=== PATIENT | male | born 1960 | race Caucasian/White ===

== ENCOUNTER → 2024-02-27 10:32 | Outpatient (BNVA) | payer MEDICARE, SELFPAY | PROVIDERS: Visit Provider Physician Assistant ==

== ENCOUNTER 2024-03-22 13:44 | Outpatient (AMB) | payer MEDICARE, SELFPAY ==
--- NOTE | 2024-03-22 14:10 | A.SPINEOV_ITS ---
Intake Visit Reasons: second opinion Intake Note: Mr. Charles is here today c/o low back pain. 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 He is a very nice gentleman who underwent a an L5-S1 transforaminal lumbar interbody fusion with Dr. Feldman probably 10-15 years ago he remembers. He had good relief at the time although not perfect he was functional. Last year he fell in the shower and since that time has had persistent low back pain and occasional cramping going down his left leg. He comes in today for evaluation. He did see after this happened and his MRI did not reveal any significant findings and he was sent to pain management in [place]. He underwent a series of injections there but they would maybe last for 1 day or so and did not get any significant relief. He was considered for spinal cord stimulator, but he felt as though the process of it was too much of a hassle and that it probably was not going to work anyway. He came in to see me for a 2nd opinion on his low back. PMH: Recently diagnosed with liver cancer and underwent partial resection, but has not followed up with his oncology team because he was frustrated with his care. Has history of coronary disease, sounds like he had a stent at 1 point but tells me he has not had any issues since. History of previous anterior cervical fusion, shoulder surgery, previous back surgery, cholecystectomy, diabetes, hypertension, BPH. He does not know what his A1c is but he told me that you told him it was good. Social hx: He smokes about a pack of cigarettes per week, smokes marijuana daily but does not use any alcohol Medications: Incruse, Breo, Ozempic, variance I clean, Flomax, tramadol, meloxicam, cetirizine, lisinopril, glipizide, gabapentin, fenofibrate, vitamin-D 12 Allergies: Fentanyl and codeine Physical exam: Awake alert oriented forgetful at times, he has full strength of bilateral lower extremities with absent reflexes at the patella bilaterally. Walks with a cane, describes discomfort around the areas of his incisions on his low back. Imaging review: Lumbar MRI done at [facility] in February of 2024 shows evidence of instrumentation at L5-S1, there is a slight spondylolisthesis at this level. There is an interbody cage which looks like it was inserted on the left side through a transforaminal approach. The rest of his disc height and his alignment of his lumbar spine is excellent. I do not see any evidence of herniated discs or problems with the hardware. Impression: 63-year-old male with previous history of L5-S1 fusion done at [facility] 10-15 years ago presents with chronic low back pain since a fall last spring time in 2022 with intermittent cramping going down his left leg. He saw his surgeon at [facility] who told him that everything looked okay and sent him for pain management. He had intermittent success here but nothing long lasting. I looked at his MRI as well and overall his disc height is excellent and there is no sign of adjacent segment disease or nerve impingement that I can see. There is nothing structurally that I can pinpoint to which would explain the back pain. We agree with Dr. Feldman that there is no further surgery to offer him at this point. I told him he should reconsider the option of a spinal cord stimulator. Thank you for allowing us to care for your patient. The total time spent with this visit with this patient was 45 minutes reviewing history, physical exam, lumbar imaging review, and implementation of treatment plan or further diagnostic testing Alfonzo Otoole MD,PhD [facility] Coding Level of Care Code New Pt Level 4 (64093) Diagnoses Failed back syndrome M96.1
== END 2024-03-22 15:22 | disposition home or self-care (01) ==
PROVIDERS: PCP Physician Assistant; Referring Provider Physician Assistant; Visit Provider Physician Assistant
DX: M96.1 Postlaminectomy syndrome, not elsewhere classified (principal)
CPT/HCPCS: 99204

== ENCOUNTER → 2024-03-22 13:44 | Outpatient (BNVA) | payer MEDICARE, SELFPAY | PROVIDERS: Visit Provider Physician Assistant | DX: M96.1 Postlaminectomy syndrome, not elsewhere classified (principal) | CPT/HCPCS: 99202 ==

== ENCOUNTER 2025-06-10 14:52 | Outpatient (AMB) | payer MEDICARE, MEDICAID, SELFPAY ==
--- OUTSIDE RECORDS SUMMARY | 2025-01-13 07:25 | XMS_ITS ---
Author Organization [facility] Address [address], [place] [id number] Care Team Providers Care Technical Communication Teacher Name Role Phone JASON CANDELARIO Primary Care Provider [phone] REASON FOR VISIT PA for tramadol Encounters Encounter Location Date Provider Diagnosis [facility] [address] [place] [address] 01/13/2025 JASON CANDELARIO PLAN OF TREATMENT Next Appt Details Provider Name:JASON CANDELARIO , 07/27/2025 10:00:00 AM, [address] [place], [address],
--- OUTSIDE RECORDS SUMMARY | 2025-02-02 06:00 | XMS_ITS ---
Author Organization 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 Evaluate and treat. Diagnosis 1 Neuropathy (G62.9) Diagnosis 2 Failed back syndrome , lumbar (M96.1) Referral Organization [facility] Referring Provider First Name JASON Referring Provider Last Name KODAK Referring Provider Speciality Internal M edicine Referred Provider Specialty Physiatry General Notes JASON CANDELARIO 02/02 01:06:52 PM > [facility] [address] Patient needs evaluation for continued chronic back pain and bilateral foot neuropathy related to failed back syndrome. Consider injections., Miryam MERLOS MA 05/05/2025 10:56:51 AM > Referral faxed to (F) [phone] (P) [phone], Layne MICHAELS RN 05/24/2025 11:34:49 AM >Left VM for Crystal at office to confirm receipt of referral and try to book appt. Referral Priority Routine REASON FOR VISIT Follow-up 3 to 4 months for diabetes, blood pressure and medication MEDICATIONS Medication SIG (Take, Route, Frequency, Duration) Notes Start Date End Date Status Ozempic (0.25 or 0.5 MG/DOSE) 2 MG/3ML 0.25 mg Subcutaneous weekly 02/02/2025 Active Cetirizine HCl 10 MG 1 tablet Orally Onc e a day for 30 day(s) Active Levocetirizine Dihydrochloride 5 MG 1 tablet at bedtime orally Once a day Active Azelastine HCl 137 MCG/SPRAY 2 puffs (1 spray in each nostril) Nasally Twice a day 10/27/2024 Active Lisinopril-hydroCHLOROthiazi de 20-12.5 MG 2 tablet Orally Once a day for 90 days Active Varenicline Tartrate 1 MG 3 tablet after eating Orally once a day Active Tamsulosin HCl 0.4 MG 1 capsule Orally O nce a day for 30 day(s) Active traMADol HCl 100 MG 1 tablet as needed orally 4-6 hrs 01/28/2025 Active Albuterol Sulfate (2.5 MG/3ML) 0.083% 3 mL as needed Inhalation every 6 hrs 10/06/2024 Active Gabapentin 400 MG 2 capsules in AM, 2 cap mid day and 1 cap at bedtime./ Orally Active Omeprazole 40 MG 1 capsule 30 minutes before morning meal Orally Once a day for 90 days Active Vitamin B-12 1000 MCG 1 tablet Orally On ce a day for 30 days Active Albuterol Sulfate HFA 108 (90 Base) MCG/ACT 2 puffs Inhalation every 4-6 hours as needed for wheezing 02/03/2024 Active Incruse Ellipta 62.5 MCG/INH 1 puff inha led Once a day Active Nitroglycerin 0.4 MG 1 tablet sublingual q 5 min x 3 doses prn chest pain Active glipiZIDE ER 10 MG 2 tablets Orally Onc e a day for 90 days Active Fenofibrate Micronized 134 MG 1 capsule orally once a day for 30 day(s) Active Fluticasone Propionate 50 MCG/ACT 1 spray in each nostril Nasally Once a day Active Ibuprofen 200 MG 3 tablet with food o r milk as needed Orally Three times a day Active SOCIAL HISTORY Tobacco Use: Social History Observation Description Date Details (start date - stop date) Current Smoker NA - NA Sex Assigned At : Social History Observation Description Sex Assigned At Unknown Smoking Question Answer Notes Are you a: current smoker How often do you smoke Cigarettes? every day How many cigarettes a day do you smoke? 5 or les s Section Notes: pt smokes 2-3 cigarettes a d ay VITAL SIGNS Height 68 in 02/02/2025 Weight 234.6 lbs 02/02/2025 Blood pressure systolic 128 mm Hg 02/03/20 Blood pressure diastolic 88 mm Hg 025 BMI 35.67 kg/m2 02/02/2025 Encounters Encounter Location Date Provider Diagnosis [facility] [address] [place] [address] 02/02/2025 JASON CANDELARIO Type 2 diabetes mellitus with diabetic polyneuropathy, without long-term current use of insulin E11.42 ; Essential hypertension I10 ; Mixed hyperlipidemia E78.2 ; COPD (chronic obstructive pulmonary disease) J44.9 ; Failed back syndrome, lumbar M96.1 ; Neuropathy G62.9 and Seasonal allergic rhinitis due to pollen J30.1 ASSESSMENTS Encounter Date Diagnosis Assessment Notes Treatment Notes Treatment Clinical Notes Section Notes 02/02/2025 Type 2 diabetes mellitus with diabetic polyneuropathy, without long-term current use of insulin (ICD-10 - E11.42) Continue glipizide 10 mg 2 tablets daily. Start Ozempic if approved 0.25 mg weekly for 1 month then will go up to 0.5 mg weekly. Labs ordered. Follow-up in 4 months. Return sooner as needed. Discussed diet, exercise and weight loss. 02/02/2025 Essential hypertension (ICD-10 - I10) Labs ordered. Continue lisinopril/hydroch lorothiazide 20/12.5 mg 2 tablets daily. Discussed diet, exercise and weight loss. Follow-up in 4 months. Blood pressure today is stable. 02/02/2025 Mixed hyperlipidemia (ICD-10 - E78.2) Labs ordered. Continue fenofibrate 134 mg daily. We will continue to monitor and adjust treatment as indicated. Discussed diet, exercise and weight loss. 02/02/2025 COPD (chronic obstructive pulmonary disease) (ICD-10 - J44.9) Currently stable. Continue Incruse Ellipta 62.5 mcg 1 puff daily. Albuterol inhaler or nebulizer for rescue as needed. Currently stable and limited use of rescue medications needed recently. Overall feels well and we will continue to monitor. 02/02/2025 Failed back syndrome, lumbar (ICD-10 - M96.1) Referral placed to physiatry for further evaluation and consideration for possible injections. Continue ibuprofen as needed and tramadol 100 mg as prescribed. Continue gabapentin 400 mg 2 capsules in the morning, 2 capsules midday and 1 capsule at bedtime ice and heat to the back with gentle stretching and range of motion encouraged. We will continue to monitor. 02/02/2025 Neuropathy (ICD-10 - G62.9) See failed back syndrome plan. 02/02/2025 Seasonal allergic rhinitis due to pollen (ICD-10 - J30.1) Continue cetirizine 10 mg in the morning and levocetirizine 5 mg at bedtime. Continue azelastine nasal spray 1 spray each nostril twice a day. Symptomatic care as discussed. Follow-up if continued or worsening symptoms. PLAN OF TREATMENT Medication Medication Name Sig Start Date Stop Date Notes Ozempic (0.25 or 0.5 MG/DOSE ) 2 MG/3ML 0.25 mg Subcutaneous weekly 02/02/2025 Cetirizine HCl 10 MG 1 tablet Orally Onc e a day for 30 day(s) Levocetirizine Dihydrochlori de 5 MG 1 tablet at bedtime orally Once a day Treatment Notes Assessment Notes Type 2 diabetes mellitus wit h diabetic polyneuropathy, without long-term current use of insulin Continue glipizide 10 mg 2 tablets daily . Start Ozempic if approved 0.25 mg weekly for 1 month then will go up to 0.5 mg weekly. Labs ordered. Follow-up in 4 months. Return sooner as needed. Discussed diet, exercise and weight loss. Essential hypertension Labs ordered. Con tinue lisinopril/hydrochlorothiazide 20/12.5 mg 2 tablets daily. Discussed diet, exercise and weight loss. Follow-up in 4 months. Blood pressure today is stable. Mixed hyperlipidemia Labs ordered. Natacha nue fenofibrate 134 mg daily. We will continue to monitor and adjust treatment as indicated. Discussed diet, exercise and weight loss. COPD (chronic obstructive pu lmonary disease) Currently stable. Continue Incruse Ellip ta 62.5 mcg 1 puff daily. Albuterol inhaler or nebulizer for rescue as needed. Currently stable and limited use of rescue medications needed recently. Overall feels well and we will continue to monitor. Failed back syndrome, lumbar Referral pl aced to physiatry for further evaluation and consideration for possible injections. Continue ibuprofen as needed and tramadol 100 mg as prescribed. Continue gabapentin 400 mg 2 capsules in the morning, 2 capsules midday and 1 capsule at bedtime ice and heat to the back with gentle stretching and range of motion encouraged. We will continue to monitor. Neuropathy See failed back synd luz maria plan. Seasonal allergic rhinitis due to pollen Continue cetirizine 10 mg in the morning and levocetirizine 5 mg at bedtime. Continue azelastine nasal spray 1 spray each nostril twice a day. Symptomatic care as discussed. Follow-up if continued or worsening symptoms. 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 Evaluate and treat. Next Appt Details Follow Up: Follow-up in 3 to 4 months for recheck on diabetes, blood pressure and medication in 40 minutes slot. Referral to physiatry placed. Continue current medications as prescribed. Start Ozempic if approved at 0.25 mg weekly then can go up to 0.5 mg weekly in 1 month., Reason: Provider Name:JASON CANDELARIO , 07/27/2025 10:00:00 AM, [address] [place] [address], [id number], Progress Notes * Examination Category Sub-Category Detail Notes Category Not es General Examination HEENT: NC/AT, EOMI,PERRL Neck: supple, no lymphaden opathy, no thyromegaly, no carotid bruit, JVP flat Heart: RRR, no murmurs, cli cks or rubs, normal S1S2 Lungs: clear to auscultatio n Abdomen: soft, non tender/non distended Extremities: normal ROM, no clubb ing , cyanosis, or edema, both feet with chronic neuropathic pain and some decreased sensation bilaterally. This is currently stable. General Appearance no apparent distress , pleasant, obese Skin: normal, no rash Neuro alert and oriented x 3, CN 2-12 intact, motor 5/5 bilaterally proximally and distally in all 4 extremities History and Physical Notes * HPI (History of Present Illness) Category Sub-Category Detail Notes Category Not es General Patient here fo r follow-up on diabetes, blood pressure, hyperlipidemia, COPD, seasonal allergies, failed back syndrome and neuropathy. Patient states he has new insurance and would like to try to get back on the GLP-1 and would like to try Ozempic. Prescription will be sent. In the meantime he continues on glipizide ER 10 mg 2 tablets once a day. Last hemoglobin A1c 1 month ago was 8.1. He is on fenofibrate 134 mg daily for his triglycerides and cholesterol. Tolerating well. He continues on omeprazole 40 mg daily for GERD. He has Incruse Ellipta 1 puff daily for COPD and notes that he rarely has to use his albuterol rescue but of the last few days with the heat and humidity has had to use the albuterol little bit more. Continues on lisinopril/hydrochlorothiazide 20/12.5 mg 2 tablets daily for his blood pressure and blood pressure today is under good control. For BPH he is on tamsulosin 0.4 and milligrams daily and tolerating. For his seasonal allergies he is on cetirizine in the morning and levocetirizine at bedtime. He also has azelastine nasal sprays twice a day. Does continue on Chantix. He has tramadol 100 mg 1 tablet every 4-6 hours as needed for his chronic pain related to his failed back surgery and chronic neuropathy. He will use ibuprofen as well at times. Currently stable. Will put in referral to physiatry. May need further evaluation. Consultation Request Notes Referral Date Referring Provider Referred Provider Not kanchan 02/02/2025 JASON CANDELARIO , (FAXED ) Chronic back pain and bilateral foot neuropathy. Evaluate and treat.
--- OUTSIDE RECORDS SUMMARY | 2025-03-24 06:34 | XMS_ITS ---
Author Organization [facility] Address [address], [place] [id number] Care Team Providers Care Whale Trainer Name Role Phone JASON CANDELARIO Primary Care Provider REASON FOR VISIT issue with insurance Encounters Encounter Location Date Provider Diagnosis [facility] [address] [place] [address] 03/24/2025 JASON CANDELARIO PLAN OF TREATMENT Next Appt Details Provider Name:AJSON CANDELARIO , 07/27/2025 10:00:00 AM, [address] [place], [address],
--- OUTSIDE RECORDS SUMMARY | 2025-05-05 05:20 | XMS_ITS ---
Author Organization [facility] Address [address] [place], [place] [id number] Care Team Providers Care Cook Camp Name Role Phone JASON CANDELARIO Primary Care [...] e REASON FOR REFERRAL Reason (FAXED 05/05/25) Requ esting second opinion on failed back syndrome in his lumbar region and other potential options Diagnosis 1 Failed back syndrome , lumbar (M96.1) Referral Organization [facility] Referring Provider First Name JASON Referring Provider Last Name KODAK Referring Provider Speciality Internal M edicine Referred Provider HILARY GUTIERREZ Referred Provider Specialty Neurological Surgery General Notes JASON CANDELARIO 05/05 10:25:43 AM > please send referral to Dr. 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 Previous surgery by Dr. Feldman adenoids with orthopedics and does not want to see any providers there any longer. Would like second opinion on other possible treatments including possibility of endoscopic surgery., Miryam MERLOS [place] 05/05/2025 03:25:58 PM > Referral faxed (P) (f) [phone] Referral Priority Routine REASON FOR VISIT Follow-up in 3 to 4 months for recheck on diabetes, blood pressure and medicationin 40 minutes slot, pt would like flu vaccine MEDICATIONS Medication SIG (Take, Route, Frequency, Duration) Notes Start Date End Date Status traMADol HCl 100 MG 1 tablet as needed orally 4-6 hours 04/20/2025 Active Omeprazole 40 MG 1 capsule 30 minutes before morning meal Orally Once a day for 90 days Active Fluticasone Propionate 50 MCG/ACT 1 spray in each nostril Nasally Twice a day Active Levocetirizine Dihydrochloride 5 MG 1 tablet at bedtime orally Once a day Active Cetirizine HCl 10 MG 1 tablet Orally Onc e a day for 30 day(s) Active Tamsulosin HCl 0.4 MG 1 capsule Orally O nce a day for 30 day(s) Active Varenicline Tartrate 1 MG 3 tablet after eating Orally once a day Active Lisinopril-hydroCHLOROthiazi de 20-12.5 MG 2 tablet Orally Once a day for 90 days Active Azelastine HCl 137 MCG/SPRAY 2 puffs (1 spray in each nostril) Nasally Twice a day 10/27/2024 Active Gabapentin 400 MG 3 capsules in AM, 3 cap mid day and 3 caps at bedtime./ Orally three times a day Active glipiZIDE ER 10 MG 2 tablets Orally Onc e a day for 90 days Active Albuterol Sulfate (2.5 MG/3ML) 0.083% 3 mL as needed Inhalation every 6 hrs 10/06/2024 Active Albuterol Sulfate HFA 108 (90 Base) MCG/ACT 2 puffs Inhalation every 4-6 hours as needed for wheezing 02/03/2024 Active Vitamin B-12 1000 MCG 1 tablet Orally On ce a day for 30 days Active Fenofibrate Micronized 134 MG 1 capsule orally once a day for 30 day(s) Active Nitroglycerin 0.4 MG 1 tablet sublingual q 5 min x 3 doses prn chest pain Active Incruse Ellipta 62.5 MCG/INH 1 puff inha led Once a day Active Ibuprofen 200 MG 3 tablet with food o r milk as needed Orally Three times a day Active Ozempic (0.25 or 0.5 MG/DOSE) 2 MG/3ML 0.5 mg Subcutaneous weekly 02/02/2025 Active SOCIAL HISTORY Tobacco Use: Social History [...] d ay VITAL SIGNS Height 68 in 05/05/2025 Weight 238.4 lbs 05/05/2025 Blood pressure systolic 132 mm Hg 05/05/20 Blood pressure diastolic 88 mm Hg 025 BMI 36.24 kg/m2 05/05/2025 Encounters Encounter Location Date Provider Diagnosis [facility] [address] [place] [address] 05/05/2025 JASON CANDELARIO Type 2 diabetes mellitus with diabetic polyneuropathy, without long-term current use of insulin E11.42 ; Essential hypertension I10 ; Mixed hyperlipidemia E78.2 ; COPD (chronic obstructive pulmonary disease) J44.9 and Failed back syndrome, lumbar M96.1 ASSESSMENTS Encounter Date Diagnosis Assessment Notes Treatment Notes Treatment Clinical Notes Section Notes 05/05/2025 Type 2 diabetes mellitus with diabetic polyneuropathy, without long-term current use of insulin (ICD-10 - E11.42) Get lab work done as ordered. Increase Ozempic to 0.5 mg weekly. Continue glipizide 10 mg 2 tablets daily. Follow-up in 3 months. Discussed diet and weight loss. 05/05/2025 Essential hypertension (ICD-10 - I10) Get labs done as ordered. Blood pressure initially elevated but improved on recheck. Continue lisinopril/hydroc hlorothiazide 20/12.5 mg 2 tablets daily. Discussed diet and weight loss. Watch salt intake. Avoid fried and fatty foods. Will recheck in 3 months. 05/05/2025 Mixed hyperlipidemia (ICD-10 - E78.2) Get labs done as ordered. Continue fenofibrate 134 mg daily. Discussed diet and weight loss. We will continue to monitor. 05/05/2025 COPD (chronic obstructive pulmonary disease) (ICD-10 - J44.9) Currently stable. Continue Incruse Ellipta 62.5 mcg 1 puff daily and albuterol inhaler and albuterol nebulizer as needed for exacerbations. No recent exacerbations and doing well. We will continue to monitor. 05/05/2025 Failed back syndrome, lumbar (ICD-10 - M96.1) Increase gabapentin 400 mg to 3 tablets in the morning, 3 tablets midday, and 3 tablets at bedtime. Referral to Dr. Gutierrez for second opinion on possible treatments. Ice and heat as discussed. Tramadol if needed. PLAN OF TREATMENT Medication Medication Name Sig Start Date Stop Date Notes Ozempic (0.25 or 0.5 MG/DOSE ) 2 MG/3ML 0.5 mg Subcutaneous weekly 02/02/2025 Treatment Notes Assessment Notes Type 2 diabetes mellitus wit h diabetic polyneuropathy, without long-term current use of insulin Get lab work done as ordered. Increase Ozempic to 0.5 mg weekly. Continue glipizide 10 mg 2 tablets daily. Follow-up in 3 months. Discussed diet and weight loss. Essential hypertension Get labs done as ordered. Blood pressure initially elevated but improved on recheck. Continue lisinopril/hydrochlorothiazide 20/12.5 mg 2 tablets daily. Discussed diet and weight loss. Watch salt intake. Avoid fried and fatty foods. Will recheck in 3 months. Mixed hyperlipidemia Get labs done as or dered. Continue fenofibrate 134 mg daily. Discussed diet and weight loss. We will continue to monitor. COPD (chronic obstructive pu lmonary disease) Currently stable. Continue Incruse Ellip ta 62.5 mcg 1 puff daily and albuterol inhaler and albuterol nebulizer as needed for exacerbations. No recent exacerbations and doing well. We will continue to monitor. Failed back syndrome, lumbar Increase ga bapentin 400 mg to 3 tablets in the morning, 3 tablets midday, and 3 tablets at bedtime. Referral to Dr. Gutierrez for second opinion on possible treatments. Ice and heat as discussed. Tramadol if needed. Referrals Referral Date Details (FAXED 05/05/25) Requ esting second opinion on failed back syndrome in his lumbar region and other potential options , HILARY GUTIERREZ Next Appt Details Follow Up: Needs Prevnar 20 and flu shot today. Labs ordered. Follow-up in 3 months for diabetes, blood pressure, cholesterol and medication in 40 minutes slot. Referral to Dr. Gutierrez for second opinion on failed back syndrome. Return sooner as needed., Reason: Provider Name:JASON CANDELARIO , 07/27/2025 10:00:00 AM, [address] [place], [address], Progress Notes * Examination Category Sub-Category Detail Notes Category Not es General Examination HEENT: NC/AT, EOMI,PERRL, no nicteric Neck: supple, no lymphaden opathy, no carotid bruit, JVP flat Heart: RRR, no murmurs, cli cks or rubs, normal S1S2 Lungs: clear to auscultatio n Abdomen: Soft with positive b owel sounds. Some discomfort with palpation in the right and left upper quadrants but no rebound or guarding. Mild bloating noted. Extremities: normal ROM, no clubb ing , cyanosis, or edema General Appearance alert, pleasant, unc omfortable due to pain Skin: normal, no rash Neuro alert and oriented x 3, CN 2-12 intact, motor 5/5 bilaterally proximally and distally in all 4 extremities, ambulates with aid of cane with slow antalgic gait. Back: Decreased range of m otion of spine. Tenderness with palpation in the lower lumbar spine and SI joints. No deformities noted. History and Physical Notes * HPI (History of Present Illness) Category Sub-Category Detail Notes Category Not es General Patient here fo r 3-month follow-up on diabetes, blood pressure, cholesterol, COPD, failed back syndrome/chronic pain and medication. Last hemoglobin A1c October 27, 2024 was 8.1. Did not get lab work done that was ordered in January. Will get lab work today. He was recently approved for Ozempic and has taken 3 doses of the 0.25 mg weekly dose. Will go up to 0.5 after last 0.25 dose. Continues on glipizide ER 10 mg 2 tablets daily. Not checking sugars at home. Blood pressure was mildly elevated but improved on recheck. Continues on lisinopril/hydrochlorothiazide 20/12.5 mg 2 tablets daily. He notes that he has been under a lot of stress over the last month with his brother in the hospital for the last month due to complications from rare lymphoma. Patient has not been sleeping much and not eating as well. His back pain continues and he would like a referral for a second opinion for possible endoscopic spine surgery evaluation. Had seen Dr. Feldman in the past but does not want to see [facility] any longer. Currently on gabapentin 400 mg 3 capsules in the morning, 2 capsules midday and 3 capsules at bedtime. Has been helpful but still having discomfort we will go up to 3 capsules at each dose and he will be at max dose. He does use tramadol as needed for pain. He is using the Incruse Ellipta daily and albuterol inhaler and nebulizer as needed. Continues on omeprazole 40 mg daily. Denies any issues with chest pain or current shortness of breath. He does have a history of hepatocellular carcinoma but has declined any treatment or follow-up with oncology or GI for this. He continues to refuse care. He does understand the risks of not treating and eventual morbidity and mortality and continues to deny referral for treatment. Consultation Request Notes Referral Date Referring Provider Referred Provider Not es 05/05/2025 JASON CANDELARIO FREDERIK (FAXED 05/05/25) Requesting second opinion on failed back syndrome in his lumbar region and other potential options
--- OUTSIDE RECORDS SUMMARY | 2025-05-05 06:15 | XMS_ITS ---
Author Organization [facility] Address [address], [place] [id number] Care Team Providers Care Poker Machine Attendant Name Role Phone JASON CANDELARIO Primary Care Provider [facility] [place], NURSING Unavailable [phone] REASON FOR VISIT flu shot IMMUNIZATIONS Vaccine Route Administration Date Status Comme nts Influenza, Fluzone HD 65+ IM Intramuscular 05/05/2025 Admi nistered Encounters Encounter Location Date Provider Diagnosis [address] [address] 05/05/2025 NURSING [facility] PLAN OF TREATMENT Next Appt Details Provider Name:JASON CANDELARIO , 07/27/2025 10:00:00 AM, [address] [place] [address], [phone],
--- OUTSIDE RECORDS SUMMARY | 2025-05-06 04:00 | XMS_ITS ---
Author Organization [facility] Address [address], [place] [id number] Care Team Providers Care Guide Cruise Name Role Phone JASON CANDELARIO Primary Care Provider [phone] REASON FOR VISIT Lab results MEDICATIONS Medication SIG (Take, Route, Frequency, Duration) Notes Start Date End Date Status Fenofibrate Micronized 134 MG 1 capsule orally once a day Active Encounters Encounter Location Date Provider Diagnosis [address] [address] 05/06/2025 JASON CANDELARIO PLAN OF TREATMENT Medication Medication Name Sig Start Date Stop Date Notes Fenofibrate Micronized 134 MG 1 capsule orally once a day Next Appt Details Provider Name:JASON CANDELARIO , 07/27/2025 10:00:00 AM, [address] [place], [address],
--- OUTSIDE RECORDS SUMMARY | 2025-05-12 05:19 | XMS_ITS ---
Author Organization [facility] Address [address], [place] [id number] Care Team Providers Care Truck Loader And Unloader Name Role Phone JASON CANDELARIO Primary Care Provider [phone] REASON FOR VISIT PA for Tramadol Encounters Encounter Location Date Provider Diagnosis [facility] [address] [place] [address] 2025 JASON CANDELARIO PLAN OF TREATMENT Next Appt Details Provider Name:JASON CANDELARIO , 07/27/2025 10:00:00 AM, [address] [place], [address],
--- OUTSIDE RECORDS SUMMARY | 2025-05-24 07:15 | XMS_ITS ---
Author Organization [facility] Address [address] [place], [place] [id number] Care Team Providers Care Chummer Name Role Phone JASON CANDELARIO Primary Care Provider REASON FOR VISIT CM/Referral F/U Encounters Encounter Location Date Provider Diagnosis [facility] [address] [place] [phone] 05/24/2025 JASON CANDELARIO PLAN OF TREATMENT Next Appt Details Provider Name:JASON CANDELARIO , 07/27/2025 10:00:00 AM, [address] [place], [address],
--- OUTSIDE RECORDS SUMMARY | 2025-05-24 08:33 | XMS_ITS ---
Author Organization [facility] Address [address], [place] [id number] Care Team Providers Care Bank Credit Card Collection Clerk Name Role Phone JASON CANDELARIO Primary Care Provider RESULTS Component Value Reference Range Notes MRI Lumbar Spine without con trast Reviewed date:06/07/2025 05:53:15 PM Interpretation: Performing Lab: Notes/Report: REASON FOR VISIT (2)CM/Referral F/U/ MRI PROBLEMS Problem Type ICD Code Onset Dates Problem Status W/U Status Risk SNOMED Code Notes Problem Degeneration of intervertebral disc of lumbar region with discogenic back pain and lower extremity pain (M51.362) Active confirmed [id number] Encounters Encounter Location Date Provider Diagnosis [facility] [address] [place] [phone] 05/24/2025 JASON CANDELARIO Failed back syndrome , lumbar M96.1 ; Degeneration of intervertebral disc of lumbar region with discogenic back pain and lower extremity pain M51.362 ; Lumbago with sciatica, right side M54.41 and Lumbago with sciatica, left side M54.42 ASSESSMENTS Encounter Date Diagnosis Assessment Notes Treatment Notes Treatment Clinical Notes Section Notes 05/24/2025 Failed back syndrome, lumbar (ICD-10 - M96.1) 05/24/2025 Degeneration of intervertebral disc of lumbar region with discogenic back pain and lower extremity pain (ICD-10 - M51.362) 05/24/2025 Lumbago with sciatica, right side (ICD-10 - M54.41) 05/24/2025 Lumbago with sciatica, left side (ICD-10 - M54.42) PLAN OF TREATMENT Next Appt Details Provider Name:JASON CANDELARIO , 07/27/2025 10:00:00 AM, [address] [place] [address], [phone],
--- OUTSIDE RECORDS SUMMARY | 2025-06-07 10:30 | XMS_ITS | Encounter Summary ---
Author Organization [facility] Address [address] [place] [address] Care Team Providers Care Primer Assembler Name Role Phone Juana Anderson MD Primary Care Provider [phone] Reason for Visit * Therapy (Routine) - Authorized Specialty Diagnoses / Procedures Referred By Contac t Referred To Contact Pulmonology Diagnoses Centrilobular emphysema (CMS/HCC V24, [facility] V28) Procedures Pulmonary function testing: Carbon Monoxide Diffusing Capacity, Helium Dilution Lung Volumes, Flow Volume Loop, Spirometry with Bronchodilator, Vital Capacity Test, Spirometry Adrienne Fontenot MD [address] [place] [address] Phone: tel: fax: Pulmonology - [address] [address] Phone: tel: fax: Referral ID Status Reason Start Date Expiration Date V isits Requested Visits Authorized [id number] Authorized 02/23/2025 02/23/2026 1 1 Encounter Details Date Type Department Care Team (Latest Contact Info) Description 06/07/2025 10:30 AM EDT Ancillary Procedure Pulmonology - [address] [address] Centrilobular emphysema (CMS/HCC V24, [facility] V28) Social History Tobacco Use Types Packs/Day Years Used Date Smoking Tobacco: Some Days Cigarettes Smokeless Tobacco: Never Alcohol Use Standard Drinks/Week Comments No 0 (1 standard drink = 0.6 oz pur e alcohol) Sex and Gender Information Value Date Recorded Sex Assigned at Not on file Legal Sex Male 10:20 AM EST Gender Identity Not on file Sexual Orientation Not on file documented as of this encounter Progress Notes * Mike May - 06/07/2025 10:30 AM EDT PFT performed Patient reports self administration of bronchodilators 60 mins prior to arrival. Ordering provider aware; approved to continue with diagnostic testing as scheduled. documented in this encounter Plan of Treatment Upcoming Encounters Date Type Department Care Team (Late st Contact Info) Description 09/07/2025 11:00 AM EST Office Visit Pulmonology - [place] [address] [place] [address] Adrienne Fontenot MD [address] [place] [phone] documented as of this encounter Procedures Procedure Name Priority Date/Time Associated Diagnosis Comments PULMONARY FUNCTION TESTING Routine 06/07/2025 10:52 AM EDT Centrilobular emphysema (CMS/HCC V24, CMS/HCC V28) documented in this encounter Results * Pulmonary function testing: Carbon Monoxide Diffusing Capacity, Helium Dilution Lung Volumes, Flow Volume Loop, Spirometry with Bronchodilator, Vital Capacity Test, Spirometry (06/07/2025 10:52 AM EDT) Impressions Adrienne Fontenot MD - 06/07/2025 10:52 AM EDT Pulmonary function test interpretation. Spirometry done today reveals FEV1 of 1.82 which is 56% of the predicted value, FVC is 2.67 which is 61% of the predicted value, FEV1 to FVC ratio is 92% of the predicted value, bronchodilator response was not assessed. Flow-volume is consistent with obstructive pattern. Static lung volumes including total lung capacity is mildly reduced. Diffusion lung capacity is severely reduced and remains severely reduced after correction for alveolar volume. This study is consistent with moderate obstructive lung disease along with concomitant mild restrictive lung disease for which clinical correlation is recommended. us Adrienne Fontenot MD PFT ORDERABLES Final Result documented in this encounter Visit Diagnoses Diagnosis Centrilobular emphysema (CMS/[facility] V24, CMS/[facility] V28) documented in this encounter Care Teams Primer Assembler Relationship Specialty Start Date End Date Juana Anderson MD [address] [place], [place] PCP - General 03/15/16 documented as of this encounter
--- OUTSIDE RECORDS SUMMARY | 2025-06-07 11:15 | XMS_ITS | Encounter Summary ---
Author Organization [facility] Address [address] [place] [address] Care Team Providers Care Hims Clerk Name Role Phone Juana Anderson MD Primary Care Provider Reason for Visit * Reason Comments Sleep Apnea Encounter Details Date Type Department Care Team (Late st Contact Info) Description 06/07/2025 11:15 AM EDT Office Visit Pulmonology - [address] [place] [address] Adrienne Fontenot MD [address] [place] [phone] Morbid obesity due to excess calories ([facility] V24, [facility] V28) (Primary Dx); Emphysema of lung ([facility] V24, [facility] V28); Seasonal allergic rhinitis due to pollen; Chronic obstructive pulmonary disease, unspecified COPD type ([facility] V24, [facility] V28) Social History Tobacco Use [...] on file documented as of this encounter Last Filed Vital Signs Vital Sign Reading Time Taken Comments Blood Pressure 136/96 06/07/2025 11:08 AM EDT Pulse 91 06/07/2025 11:08 AM EDT Temperature 35.8 C (96.5 F) 06/07/2025 11:08 AM EDT Respiratory Rate - - Oxygen Saturation 99% 06/07/2025 11:08 AM EDT Inhaled Oxygen Concentration - - Weight 104 kg (230 lb) 06/07/2025 11:08 AM EDT Height - - Body Mass Index 33.97 02/23/2025 9:01 AM EDT documented in this encounter Ordered Prescriptions Prescription Sig Dispense Quantity Refills Last Filled Start Date End Date albuterol HFA (Ventolin HFA) 90 mcg/actuation inhaler Inhale 2 puffs by mouth every 6 (six) hours if needed for wheezing or shortness of breath. 18 g 11 06/07/2025 Incruse Ellipta 62.5 mcg/actuation inhalationIndicati ons:Chronic obstructive pulmonary disease, unspecified COPD type ([facility] V24, [facility] V28) Inhale 1 puff by mouth 1 (one) time each day. 9 each 11 06/07/2025 documented in this encounter Progress Notes * Cleo Parson MA - 06/07/2025 11:15 AM EDT Subjective Patient ID: Garry Charles is a 65 y.o. male. HPI Review of Systems Objective Physical Exam Assessment/Plan There are no diagnoses linked to this encounter. * Adrienne Fontenot MD - 06/07/2025 11:15 AM EDT ADULT PULMONARY Followup CHIEF COMPLAINT : Sleep Apnea HISTORY OF PRESENT ILLNESS: History of Present Illness Garry Charles is a 65 y.o. old, patient is here for follow-up visit, since his last visit to my office overall appears to be doing okay, has not been able to lose any weight, patient overall on Ozempic and gained 22 pounds, Ozempic was not covered by insurance however patient informed me that Ozempic is not covered and he has started taking Ozempic about a week ago, breathing has been stable, denies any fever or chills, chest pains, cough or colored phlegm production, no hospitalization or emergency room visits since his last visit to the office. REVIEW OF SYSTEMS: Review of Systems Cardiovascular: Positive for dyspnea on exertion. Respiratory: Positive for cough. All other systems reviewed and are negative. ALLERGIES: Current Allergies[1] ACTIVE MEDICATIONS: Medications Taking[2] PROVIDER ATTESTS THAT THE MEDICATION LIST WAS OBTAINED, REVIEWED AND UPDATED. PAST MEDICAL HISTORY: There are no active problems to display for this patient. Surgical History[3] Surgical History[4] FAMILY HISTORY: Family History[5] SOCIAL HISTORY Social History Socioeconomic History Marital status: Spouse name: Not on file Number of children: Not on file Years of education: Not on file Highest education level: Not on file Occupational History Not on file Tobacco Use Smoking status: Some Days Current packs/day: 1.50 Types: Cigarettes Smokeless tobacco: Never Substance and Sexual Activity Alcohol use: No Drug use: Yes Sexual activity: Not on file Other Topics Concern Not on file Social History Narrative Not on file IMMUNIZATION: Immunization History Administered Date(s) Administered COVID-19 (Pfizer/Comirnaty) 12yo and older 05/21/2023, 2024, 05/09/2025 Pfizer (ages 12 & older) Bivalent, COVID-19 05/31/2022 Pfizer (ages 12 & older) SARS-CoV-2 COVID-19, mRNA, LNP-S, karlee-sucrose, preservative free 12/03/2021 Pfizer SARS-CoV-2 COVID-19, mRNA, LNP-S, preservative free 10/21/2020, 11/11/2020, 05/14/2021 PHYSICAL EXAM: Visit Vitals BP (!) 136/96 (BP Location: Left arm, Patient Position: Sitting, BP Cuff Size: Adult) Pulse 91 Temp 35.8 ??C (96.5 ??F) (Temporal) Wt 104 kg (230 lb) SpO2 99% BMI 33.97 kg/m?? Smoking Status Some Days BSA 2.19 m?? Physical Exam Vitals and nursing note reviewed. Constitutional: Appearance: Normal appearance. HENT: Head: Normocephalic and atraumatic. Right Ear: Tympanic membrane, ear canal and external ear normal. Left Ear: Tympanic membrane, ear canal and external ear normal. Nose: Nose normal. Mouth/Throat: Mouth: Mucous membranes are moist. Pharynx: Oropharynx is clear. Eyes: Extraocular Movements: Extraocular movements intact. Conjunctiva/sclera: Conjunctivae normal. Pupils: Pupils are equal, round, and reactive to light. Cardiovascular: Rate and Rhythm: Normal rate and regular rhythm. Pulses: Normal pulses. Heart sounds: Normal heart sounds. Pulmonary: Effort: Pulmonary effort is normal. Breath sounds: Normal breath sounds. Abdominal: General: Bowel sounds are normal. Palpations: Abdomen is soft. Comments: Obese. Musculoskeletal: General: Normal range of motion. Cervical back: Normal range of motion and neck supple. Skin: General: Skin is warm. Capillary Refill: Capillary refill takes more than 3 seconds. Neurological: General: No focal deficit present. Mental Status: He is alert and oriented to person, place, and time. Mental status is at baseline. Psychiatric: Mood and Affect: Mood normal. Behavior: Behavior normal. Thought Content: Thought content normal. Judgment: Judgment normal. Diagnostic: CURRENTS ICD-10 PULMONARY DIAGNOSIS 1. Morbid obesity due to excess calories (CMS/HCC V24, CMS/HCC V28) 2. Emphysema of lung (CMS/HCC V24, CMS/HCC V28) 3. Seasonal allergic rhinitis due to pollen 4. Chronic obstructive pulmonary disease, unspecified COPD type (CMS/HCC V24, CMS/HCC V28) 5. Obstructive sleep apnea. 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 1. Obstructive sleep apnea, moderate degree, patient informed me that he has been using the CPAP machine every night, denies any residual daytime tiredness and somnolence. He has been advised to continue with the CPAP machine every night. 2. Emphysema, moderate degree, breathing has been stable, continue to have baseline dyspnea on exertion, continue with Breo Ellipta 100/25 mcg 1 puff once a day, Incruse Ellipta 62.5 mcg 1 puff once a day, albuterol HFA 2 puffs every 6 hours as needed for shortness of breath. 3. Allergic rhinitis, continue with Zyrtec 10 mg p.o. nightly as needed along with fluticasone nasal spray 2 spray in each nostril twice a day on as-needed basis, allergic rhinitis has been stable with the current treatment plan. 4. Morbid obesity, as mentioned before gained 22 point on Ozempic, which subsequently was not covered by the insurance but now informed me that he is back on Ozempic for the last 1 week, weight loss has been advised, counseling has been given, patient has been advised to join a weight loss program as well, dietary discretion and portion control has been advised. 5. Medications were reconciled with patient today. 6. Disposition, follow-up in 3 months. Problem List Items Addressed This Visit None Visit Diagnoses Morbid obesity due to excess calories ([facility] V24, [facility] V28) - Primary Emphysema of lung ([facility] V24, [facility] V28) Relevant Medications Incruse Ellipta 62.5 mcg/actuation inhalation albuterol HFA (Ventolin HFA) 90 mcg/actuation inhaler Seasonal allergic rhinitis due to pollen Chronic obstructive pulmonary disease, unspecified COPD type ([facility] V24, [facility] V28) Relevant Medications Incruse Ellipta 62.5 mcg/actuation inhalation albuterol HFA (Ventolin HFA) 90 mcg/actuation inhaler -Follow up with Juana Anderson MD for the other co-morbilities. RETURN TO THE NEXT VISIT: Based on physical exam, symptomatology, tests requested and baseline pulmonary evaluation/disease, I instructed the patient to come back to see me in for reevaluation after the test has been done or earlier if the patient needed. Thanks Juana Anderson MD for allowing me to have the opportunity to assist in the care of this patient. This chart was generated by the [employer]MR system and [employer] speech recognition software and may contain inherent errors or omissions not intended by the user. Grammatical errors, random word insertions, deletions, pronoun errors and incomplete sentences are occasional consequences of this technologydue to software limitations. Not all errors are caught or corrected. If there are questions or concerns about the content of this note or information contained within the body of this dictation they should be addressed directly with the author for clarification. Electronically Signed By:Adrienne Fontenot MD I have obtained verbal consent from Garry Charles prior to the recording. I have advised Garry Charles that he may refuse the recording and require the recording to be turned off at any time duringthis encounter. [1] Allergies Allergen Reactions Fentanyl Itching and Unknown Morphine Other Reaction(s): PILLS N&V Tramadol Vomiting Codeine Hives, Unknown and Rash [2] Outpatient Medications Marked as Taking for the 06/07/25 encounter (Office Visit) with Adrienne Fontenot MD Medication Sig Dispense Refill albuterol 2.5 mg /3 mL (0.083 %) nebulizer solution Take 3 mL (2.5 mg total) by nebulization every 6 (six) hours if needed for wheezing or shortness of breath. albuterol HFA (PROAIR HFA ; PROVENTIL HFA ; VENTOLIN HFA) 90 mcg/actuation inhaler Inhale 2 puffs by mouth every 4 (four) hours if needed for shortness of breath or wheezing. amoxicillin-clavulanate (AUGMENTIN) 875-125 mg per tablet Take 1 tablet by mouth every 12 (twelve) hours. for 7 days azelastine (ASTELIN) 137 mcg (0.1 %) nasal spray Administer 1 spray into each nostril 2 (two) timesa day. azithromycin (ZITHROMAX) 250 mg tablet TAKE 2 TABLETS BY MOUTH FOR 1 DAY THEN TAKE 1 TABLET BY MOUTH FOR 4 DAYS Breo Ellipta 100-25 mcg/dose inhaler Inhale 1 puff by mouth 1 (one) time each day. 60 each 11 budesonide-formoteroL (SYMBICORT) 160-4.5 mcg/actuation inhaler Inhale 2 puffs by mouth 2 (two) times a day. cetirizine (ZyrTEC) 10 mg tablet Take 1 tablet (10 mg total) by mouth 1 (one) time each day. 90 tablet 3 cyanocobalamin (VITAMIN B-12) 1,000 mcg tablet Take 1 tablet (1,000 mcg total) by mouth 1 (one) time each day. fenofibrate micronized (LOFIBRA) 134 mg capsule Take 1 capsule (134 mg total) by mouth 1 (one) timeeach day. fluticasone propionate (FLONASE) 50 mcg/actuation nasal spray Administer 1 spray into each nostril 2 (two) times a day. SHAKE LIQUID gabapentin (NEURONTIN) 400 mg capsule TAKE 3 CAPSULES BY MOUTH EVERY MORNING AND TAKE 2 CAPSULES BYMOUTH MIDDAY AND 3 CAPSULES BY MOUTH EVERY NIGHT AT BEDTIME glipiZIDE (GLUCOTROL XL) 10 mg 24 hr tablet Take 2 tablets (20 mg total) by mouth 1 (one) time eachday. Incruse Ellipta 62.5 mcg/actuation inhalation Inhale 1 puff by mouth 1 (one) time each day. 9 each 11 ipratropium (ATROVENT) 42 mcg (0.06 %) nasal spray Administer 2 sprays into each nostril 3 (three) times a day. levocetirizine (XYZAL) 5 mg tablet Take 1 tablet (5 mg total) by mouth. lisinopril-hydroCHLOROthiazide (PRINZIDE,ZESTORETIC) 20-12.5 mg per tablet Take 2 tablets by mouth 1 (one) time each day. omeprazole (PriLOSEC) [address] capsule take 1 capsule by mouth daily 30 minutes before breakfast ondansetron ODT (ZOFRAN-ODT) 4 mg disintegrating tablet Dissolve 1 tablet (4 mg total) on top of the tongue every 8 (eight) hours if needed. predniSONE (DELTASONE) 20 mg tablet TAKE 3 TABLETS BY MOUTH AT THE SAME TIME IN THE MORNING FOR 3 DAYS THEN TAKE 2 TABLETS BY MOUTH FOR 3 DAYS THEN TAKE 1 TABLET BY MOUTH FOR 3 DAYS tamsulosin (FLOMAX) 0.4 mg 24 hr capsule Take 1 capsule (0.4 mg total) by mouth 1 (one) time each day. traMADoL 100 mg tablet TAKE 1 TABLET BY MOUTH EVERY 4 TO 6 HOURS FOR 5 DAYS NEEDED [DISCONTINUED] Incruse Ellipta 62.5 mcg/actuation inhalation Inhale 1 puff by mouth 1 (one) time each day. 9 each 11 [3] Past Surgical History: Procedure Laterality Date ANGIOPLASTY PROCEDURE: HISTORICAL ANGIOPLASTY CHOLECYSTECTOMY PROCEDURE: HISTORICAL CHOLECYSTECTOMY NECK SURGERY PROCEDURE: HISTORICAL NECK SURGERY OTHER SURGICAL HISTORY 2011 PROCEDURE: LUMBAR SPINE FUSION, LAT TRANSVERSE [4] Past Surgical History: Procedure Laterality Date ANGIOPLASTY PROCEDURE: HISTORICAL ANGIOPLASTY CHOLECYSTECTOMY PROCEDURE: HISTORICAL CHOLECYSTECTOMY NECK SURGERY PROCEDURE: HISTORICAL NECK SURGERY OTHER SURGICAL HISTORY 2011 PROCEDURE: LUMBAR SPINE FUSION, LAT TRANSVERSE [5] Family History Problem Relation Name Age of Onset Coronary artery disease Mother Other (Other: unknown heart problems) Mother Liver disease Father hepatitis c, drug user Heart attack Uncle Other (Other: cancer other ) Uncle documented in this encounter Plan of Treatment Upcoming Encounters Date Type Department Care Team (Late st Contact Info) Description 09/07/2025 11:00 AM EST Office Visit Pulmonology - [place] [address] [facility] [address] [place] [address] Adrienne Fontenot MD [address] [place] [address] documented as of this encounter Visit Diagnoses Diagnosis Morbid obesity due to excess calories ([facility] V24, [facility] V28)- Primary Emphysema of lung ([facility] V24, [facility] V28) Other emphysema Seasonal allergic rhinitis due to pollen Chronic obstructive pulmonary disease, unspecified COPD type ([facility] V24, [facility] V28) documented in this encounter Discontinued Medications Medication Sig Discontinue Reason Start Date End Da te Incruse Ellipta 62.5 mcg/actuation inhalationIndications:Chr onic obstructive pulmonary disease, unspecified COPD type ([facility] V24, [facility] V28) Inhale 1 puff by mouth 1 (one) time each day. Reorder 03/16/2025 06/07/2025 documented as of this encounter Historical Medications * This list may reflect changes made after this encounter. ondansetron ODT (ZOFRAN-ODT) 4 mg disintegrating tablet Dissolve 1 tablet (4 mg total) on top of the tongue every 8 (eight) hours if needed. 4 glipiZIDE (GLUCOTROL XL) 10 mg 24 hr tablet Take 2 tablets (20 mg total) by mouth 1 (one) time each day. 4 Ozempic 0.25 mg or 0.5 mg (2 mg/3 mL) injection pen INJECT 0.5MG SUBCUTANEOUS ONCE WEEKLY added in this encounter Care Teams Hims Clerk Relationship Specialty Start Date End Date Juana Anderson MD [address] [place] [address] PCP - General 03/15/16 documented as of this encounter
--- OUTSIDE RECORDS SUMMARY | 2025-06-07 13:51 | XMS_ITS ---
Author Organization [facility] Address [address] [place], [place] [id number] Care Team Providers Care Machine Skiver Name Role Phone JASON CANDELARIO Primary Care Provider [phone] REASON FOR VISIT MRI results Encounters Encounter Location Date Provider Diagnosis [facility] [address] [place] [phone] 06/07/2025 JASON CANDELARIO PLAN OF TREATMENT Next Appt Details Provider Name:JASON CANDELARIO , 07/27/2025 10:00:00 AM, [address] [place], [phone],
--- NOTE | 2025-06-10 14:58 | A.SPINEOV_ITS ---
Intake Visit Reasons: Discuss MRI Intake Note: Mr. Charles is here today to Discuss the Results of his MRI. 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 Unfortunately the chronic left leg pain than he has continues. I looked at his MRI at [place] with Dr. Otoole in his unfortunately we still do not see anything that looks like it is amenable to surgery. It sounds like this is a posttraumatic nerve injury from when he fell out of the shower and that it is not something that we are going to be able to operate to fix. He was recently diagnosed in the last year to with liver cancer and the pain has been so bad that he tells me he is actually almost happy that he got diagnosed with liver cancer because the pain may eventually come to an end. He has not followed up with any of his liver and oncology teams as I am sure you are aware. I told him that might be worth considering the spinal cord stimulator that Dr. Feldman had talked about a few years back. I think he would be the perfect candidate for it, but the patient is very reluctant. Given that he has an and a clear staging of his cancer diagnosis, it is likely that he may be no longer a candidate for that. I urged him to look into it. I also urged him to follow up with his oncology team. Total amount of time spent in this visit was 20 minutes in discussion of symptoms, lumbar imaging results and subsequent plan of care Alfonzo Otoole MD,PhD [facility] Coding Level of Care Code Est Pt Level 3 (66304) Diagnoses Failed back syndrome M96.1
--- OUTSIDE RECORDS SUMMARY | 2025-06-10 15:16 | XMS_ITS | Clinical Summary ---
Author Organization [address] [facility] Address [address] [place] [address] Phone Care Team Providers Care Director [employer] Name Role Phone Juana Anderson MD Primary Care Provider [phone] Allergies Active Allergy Reactions Criticality Noted Date Comments Codeine Hives,Unknown,Rash Low 12/11/2012 Fentanyl Itching,Unknown High 06/07/2025 Morphine 06/07/2025 Other Reaction(s): PILLS N&V Tramadol 03/19/2021 Vomiting Medications cetirizine (ZyrTEC) 10 mg tablet Take 1 tablet (10 mg total) by mouth 1 (one) time each day. 90 tablet 3 01/26/20 25 Active budesonide-formote roL (SYMBICORT) 160-4.5 mcg/actuation inhaler Inhale 2 puffs by mouth 2 (two) times a day. 08/31/19 14 Active albuterol 2.5 mg /3 mL (0.083 %) nebulizer solution Take 3 mL (2.5 mg total) by nebulization every 6 (six) hours if needed for wheezing or shortness of breath. 10/06/19 25 Active albuterol HFA (PROAIR HFA ; PROVENTIL HFA ; VENTOLIN HFA) 90 mcg/actuation inhaler Inhale 2 puffs by mouth every 4 (four) hours if needed for shortness of breath or wheezing. Active amoxicillin-clavul anate (AUGMENTIN) 875-125 mg per tablet Take 1 tablet by mouth every 12 (twelve) hours. for 7 days 10/06/19 25 Active azelastine (ASTELIN) 137 mcg (0.1 %) nasal spray Administer 1 spray into each nostril 2 (two) times a day. 10/28/19 25 Active azithromycin (ZITHROMAX) 250 mg tablet TAKE 2 TABLETS BY MOUTH FOR 1 DAY THEN TAKE 1 TABLET BY MOUTH FOR 4 DAYS 10/06/19 25 Active cyanocobalamin (VITAMIN B-12) 1,000 mcg tablet Take 1 tablet (1,000 mcg total) by mouth 1 (one) time each day. 01/13/20 25 Active Trulicity 3 mg/0.5 mL pen injector injection ADMINISTER 3 MG UNDER THE SKIN WEEKLY 07/26/20 24 Active fenofibrate micronized (LOFIBRA) 134 mg capsule Take 1 capsule (134 mg total) by mouth 1 (one) time each day. 01/14/20 25 Active fluticasone propionate (FLONASE) 50 mcg/actuation nasal spray Administer 1 spray into each nostril 2 (two) times a day. SHAKE LIQUID Active gabapentin (NEURONTIN) 400 mg capsule TAKE 3 CAPSULES BY MOUTH EVERY MORNING AND TAKE 2 CAPSULES BY MOUTH MIDDAY AND 3 CAPSULES BY MOUTH EVERY NIGHT AT BEDTIME Active ipratropium (ATROVENT) 42 mcg (0.06 %) nasal spray Administer 2 sprays into each nostril 3 (three) times a day. 08/24/19 25 Active levocetirizine (XYZAL) 5 mg tablet Take 1 tablet (5 mg total) by mouth. Active lisinopril-hydroCH LOROthiazide (PRINZIDE,ZESTORET IC) 20-12.5 mg per tablet Take 2 tablets by mouth 1 (one) time each day. Active omeprazole (PriLOSEC) [address] capsule take 1 capsule by mouth daily 30 minutes before breakfast 10/26/19 25 Active predniSONE (DELTASONE) 20 mg tablet TAKE 3 TABLETS BY MOUTH AT THE SAME TIME IN THE MORNING FOR 3 DAYS THEN TAKE 2 TABLETS BY MOUTH FOR 3 DAYS THEN TAKE 1 TABLET BY MOUTH FOR 3 DAYS 10/06/19 25 Active tamsulosin (FLOMAX) 0.4 mg 24 hr capsule Take 1 capsule (0.4 mg total) by mouth 1 (one) time each day. Active traMADoL 100 mg tablet TAKE 1 TABLET BY MOUTH EVERY 4 TO 6 HOURS FOR 5 DAYS NEEDED 01/29/20 25 Active Breo Ellipta 100-25 mcg/dose inhalerIndications :Centrilobular emphysema (CMS/HCC V24, CMS/HCC V28) Inhale 1 puff by mouth 1 (one) time each day. 60 each 11 10/25/20 25 Active Ozempic 0.25 mg or 0.5 mg (2 mg/3 mL) injection pen INJECT 0.5MG SUBCUTANEOUS ONCE WEEKLY Active glipiZIDE (GLUCOTROL XL) 10 mg 24 hr tablet Take 2 tablets (20 mg total) by mouth 1 (one) time each day. 06/08/20 24 Active ondansetron ODT (ZOFRAN-ODT) 4 mg disintegrating tablet Dissolve 1 tablet (4 mg total) on top of the tongue every 8 (eight) hours if needed. 10/01/19 24 Active Incruse Ellipta 62.5 mcg/actuation inhalationIndicati ons:Chronic obstructive pulmonary disease, unspecified COPD type (CMS/HCC V24, CMS/HCC V28) Inhale 1 puff by mouth 1 (one) time each day. 9 each 06/07/20 Active albuterol HFA (Ventolin HFA) 90 mcg/actuation inhaler Inhale 2 puffs by mouth every 6 (six) hours if needed for wheezing or shortness of breath. 18 g 11 06/07/20 026 Active Breo Ellipta 100-25 mcg/dose inhaler Inhale 1 puff by mouth 1 (one) time each day. 60 each 1 02/02/20 025 Discontin ued(Reord er) Incruse Ellipta 62.5 mcg/actuation inhalationIndicati ons:Chronic obstructive pulmonary disease, unspecified COPD type (CMS/HCC V24, CMS/HCC V28) Inhale 1 puff by mouth 1 (one) time each day. 9 each 03/16/20 025 Discontin ued(Reord er) Encounters Date Type Department Care Team Description 06/07/2025 11:15 AM EDT Office Visit Pulmonology - [address] [place] [address] Adrienne Fontenot MD Morbid obesity due to excess calories (CMS/HCC V24, CMS/HCC V28) (Primary Dx); Emphysema of lung (CMS/HCC V24, CMS/HCC V28); Seasonal allergic rhinitis due to pollen; Chronic obstructive pulmonary disease, unspecified COPD type (CMS/HCC V24, CMS/HCC V28) 06/07/2025 10:30 AM EDT Ancillary Procedure Pulmonology - [place] [address] [facility] [address] [place] [address] [place]ob[place] [place] [facility] [place] from Last 3 Months Surgical History Surgery Date Site/Laterality Comments OTHER SURGICAL HISTORY 2011 PROCEDURE: LUMBAR SPINE FUSION, LAT TRANSVERSE NECK SURGERY PROCEDURE: HISTORICAL NECK SURGERY CHOLECYSTECTOMY PROCEDURE: HISTORICAL CHOLECYSTECTOMY ANGIOPLASTY PROCEDURE: HISTORICAL ANGIOPLASTY Medical History Medical History Date Comments COPD (chronic obstructive pu lmonary disease) [place] [place] [facility] [place] 08/17/2013 DX:COPD (chronic o bstructive pulmonary disease) ([facility]) Memory problem 08/17/2013 DX:Memory proble m Depression 08/17/2013 DX:Depression Insomnia 08/17/2013 DX:Insomnia Chronic back pain 08/17/2013 DX:Chronic virgilio k pain Chronic neck pain 08/17/2013 DX:Chronic nec k pain Anxiety 08/17/2013 DX:Anxiety HTN (hypertension) 08/17/2013 DX:HTN (hyper tension) Tobacco use disorder 08/17/2013 DX:Tobacco use disorder Hepatitis C 08/17/2013 DX:Hepatitis C Marijuana use DX:Marijuana use Dyslipidemia DX:Dyslipidemia Elevated fasting glucose DX:Elev ated fasting glucose CAD (coronary artery disease) DX :CAD (coronary artery disease); COMMENT: inferior ischemia on nuclear stress test. Dr Malone Family History Medical History Relation Name Comments Liver disease Father hepatitis c, d rug user Coronary artery disease Mother Other: unknown heart problems Mother Heart attack Uncle 1 Other: cancer other Uncle 2 Relation Name Status Comments Father Mother Uncle 1 Uncle 2 Uncle 3 Social History Tobacco Use Types Packs/Day Years Used Date Smoking Tobacco: Some Days Cigarettes Smokeless Tobacco: Never Tobacco Cessation:Ready to Q uit: Not Asked Alcohol Use Standard Drinks/Week Comments No 0 (1 standard drink = 0.6 oz pur e alcohol) Sex and Gender Information Value Date Recorded Sex Assigned at Not on file Legal Sex Male 10:20 AM EST Gender Identity Not on file Sexual Orientation Not on file Obstetrics History Last Filed Vital Signs Vital Sign Reading Time Taken Comments Blood Pressure 136/96 06/07/2025 11:08 AM EDT Pulse 91 06/07/2025 11:08 AM EDT Temperature 35.8 C (96.5 F) 06/07/2025 11:08 AM EDT Respiratory Rate 18 02/23/2025 9:01 AM EDT Oxygen Saturation 99% 06/07/2025 11:08 AM EDT Inhaled Oxygen Concentration - - Weight 104 kg (230 lb) 06/07/2025 11:08 AM EDT Height 175.3 cm (5' 9 ) 02/23/2025 9:01 AM EDT Body Mass Index 33.97 02/23/2025 9:01 AM EDT Plan of Treatment Upcoming Encounters Date Type Department Care Team (Late st Contact Info) Description 09/07/2025 11:00 AM EST Office Visit Pulmonology - [address] [place] [address] Adrienne Fontenot MD [address] [place] [phone] Health Maintenance Due Date Last Done Comments Colorectal Cancer Screening: Colonoscopy 1959 Diabetes: Annual GFR (Glomerular Filtration Rate) 1959 Diabetes: Annual Foot Exam 1969 Diabetes: Annual Retina Eye Exam 1969 DTaP,Tdap,and Td Vaccines (1 - Tdap) 1978 Hepatitis A Vaccines (1 of 2 - Risk 2-dose series) 1978 Zoster Vaccines (1 of 2) 2009 Hepatitis B Vaccines (1 of 3 - Risk 3-dose series) 2019 Depression Screening 08/11/2024 Abdominal Aortic Aneurysm (AAA) Screen 02/02/2025 Cholesterol Screening (Lipid Panel) 02/02/2025 Falls Risk Assessment 02/02/2025 Hepatitis C Screening 02/02/2025 Hypertension/CHF/CAD Annual BMP Blood Test 02/02/2025 Lung Cancer Screening (Low Dose CT) 02/02/2025 Medicare Annual Wellness Visit 02/02/2025 Social Influencers of Health Screening 02/02/2025 Diabetes: Annual Urine Albumin-Creatinine Ratio (uACR) 02/23/2025 Diabetes: Blood Sugar Control Test (HGBA1C) 02/23/2025 Influenza Vaccine (#1) 2025 , 05/21/2023, 05/31/2022, Additional history exists COVID-19 Vaccine Completed 05/09/2025, 09/2023, 05/21/2023, Additional history exists Pneumococcal Vaccine: 50+ Years Completed 05/09/2025, 04/14/2012 RSV Immunization Adult Patients Completed 05/09/2025 HIB Vaccines Aged Out No longer eligi ble based on patient's age to complete this topic HPV Vaccines Aged Out No longer eligi ble based on patient's age to complete this topic IPV Vaccines Aged Out No longer eligi ble based on patient's age to complete this topic MMR Vaccines Aged Out No longer eligi ble based on patient's age to complete this topic Meningococcal ACWY Vaccine Aged Out N o longer eligible based on patient's age to complete this topic Meningococcal B Vaccine Aged Out No l onger eligible based on patient's age to complete this topic RSV Immunization Patients Under 20 months Aged Out No longer eligible based on patient's age to complete this topic Varicella Vaccines Aged Out No longer eligible based on patient's age to complete this topic Procedures Procedure Name Priority Date/Time Associated Diagnosis Comments PULMONARY FUNCTION TESTING Routine 06/07/2025 10:52 AM EDT Centrilobular emphysema (CMS/[facility] V24, CMS/HCC V28) from Last 3 Months Results * Pulmonary function testing: Carbon Monoxide [...] Adrienne Fontenot MD PFT ORDERABLES Final Result from Last 3 Months Insurance MEDICARE MEDICAID - [place] Care Teams Director [employer] Relationship Specialty Start Date End Date Juana Anderson MD [address] [place] [address] PCP - General 03/15/16
--- OUTSIDE RECORDS SUMMARY | 2025-06-10 15:17 | XMS_ITS | Patient Health Record ---
Author Organization [facility] Address [address], [place] [id number] Care Team Providers Care Blind Installer Name Role Phone JASON CANDELARIO Primary Care Provider [phone] SHOKAN, RACHEL Unavailable [phone] SUSAN MIRAMONTES Unavailable [phone] LORRIE FUENTES Unavailable [phone] ALLERGIES Allergen (clinical drug ingredient) Drug/Non Drug Allergy documented on EMR Reaction Allergy Type Onset Date Status fentanyl fentaNYL skin hot/ itching Drug Allergy Active amoxicillin Amoxicillin nausa Drug Allergy Act girish codeine Codeine rash Drug Allergy Active duloxetine DULoxetine Unknown Drug Allergy Activ e sertraline Sertraline insomnia Drug Allergy Activ e REASON FOR REFERRAL Reason (FAXED 05/05/25) Er Physician daily back pain and bilateral foot neuropathy. Evaluate and treat. Diagnosis 1 Neuropathy (G62.9) Diagnosis 2 Failed back syndrome , lumbar (M96.1) Referral Organization [facility] Referring Provider First Name JASON Referring Provider Last Name KODAK Referring Provider Speciality Internal M edicine Referred Provider Specialty Physiatry General Notes JASON CANDELARIO 02/02 01:06:52 PM > please send referral to Dr. Fred Carter at [address] Patient needs evaluation for continued chronic back pain and bilateral foot neuropathy related to failed back syndrome. Consider injections., Miryam MERLOS [place] 05/05/2025 10:56:51 AM > Referral faxed to (F) [phone] (P) [phone], Layne MICHAELS RN 05/24/2025 11:34:49 AM >Left VM for Crystal at office to confirm receipt of referral and try to book appt. Referral Priority Routine Reason (FAXED 05/05/25) Requ esting second opinion on failed back syndrome in his lumbar region and other potential options Diagnosis 1 Failed back syndrome , lumbar (M96.1) Referral Organization [facility] Referring Provider First Name JASON [...] faxed (P) (f) [phone] Referral Priority Routine MEDICATIONS Medication SIG (Take, Route, Frequency, Duration) Notes Start Date End Date Status glipiZIDE ER 10 MG 2 tablets Orally Onc e a day for 90 days Active Nitroglycerin 0.4 MG 1 tablet sublingual q 5 min x 3 doses prn chest pain Active Incruse Ellipta 62.5 MCG/INH 1 puff inha led Once a day Active Tamsulosin HCl 0.4 MG 1 capsule Orally O nce a day for 30 day(s) Active Ibuprofen 200 MG 3 tablet with food o r milk as needed Orally Three times a day Active Varenicline Tartrate 1 MG 3 tablet after eating Orally once a day Active Lisinopril-hydroCHLOROthiazi de 20-12.5 MG 2 tablet Orally Once a day for 90 days Active Ozempic (0.25 or 0.5 MG/DOSE) 2 MG/3ML 0.5 mg Subcutaneous weekly 02/02/2025 Active Azelastine HCl 137 MCG/SPRAY 2 puffs (1 spray in each nostril) Nasally Twice a day 10/27/2024 Active Gabapentin 400 MG 3 capsules in the a. m., 3 capsules midday and 3 capsules at bedtime. Orally 3 times a day Active Fenofibrate Micronized 134 MG 1 capsule orally once a day Active traMADol HCl 100 MG TAKE 1 TABLET BY LOLITA TH EVERY 4 TO 6 HOURS FOR 5 DAYS NEEDED for 5 05/31/2025 Active Albuterol Sulfate (2.5 MG/3ML) 0.083% 3 mL as needed Inhalation every 6 hrs 10/06/2024 Active Albuterol Sulfate HFA 108 (90 Base) MCG/ACT 2 puffs Inhalation every 4-6 hours as needed for wheezing 02/03/2024 Active Omeprazole 40 MG 1 capsule 30 minutes before morning meal Orally Once a day for 90 days Active Vitamin B-12 1000 MCG 1 tablet Orally On ce a day for 30 days Active Fluticasone Propionate 50 MCG/ACT 1 spray in each nostril Nasally Twice a day Active Levocetirizine Dihydrochloride 5 MG 1 tablet at bedtime orally Once a day Active Cetirizine HCl 10 MG 1 tablet Orally Onc e a day for 30 day(s) Active IMMUNIZATIONS Vaccine Route Administration Date Status Comme [facility] FLU- FLUVIRIN, PRE-FILLED SYRINGE 0.5 ml IM Intramuscular 06/16/2014 Administered Influenza, Adult non Medicare IM Intramuscular 05/17/2015 Administered Influenza, Flucelvax IM Intramuscular 05/14/2017 Administered Received faxed report from [facility] pharmacy regarding patient's Flucelvax Vaccine. Influenza, Fluzone HD 65+ IM Intramuscular 05/05/2025 Administered Influenza, Fluzone QUAD, 3+ yrs, IM Intramuscular 04/28/2018 Administered Influenza, Fluzone Quad.5 ml, IM Intramuscular 06/20/2016 Administered Pfizer COVID-19,mRNA, LNP-S, PF, 30mcg/0.3mL dose IM Intramuscular 10/21/2020 Administered Pfizer COVID-19,mRNA, LNP-S, PF, 30mcg/0.3mL dose IM Intramuscular 11/11/2020 Administered Pneumococcal (PPV23, adult) IM Intramuscular 06/16/2014 Administered Pneumococcal,Prevna r 13, PEDS STATE SUPPLIED IM Intramuscular 11/14/2015 Administered SOCIAL HISTORY Tobacco Use: Social History Observation Description Date Details (start date - stop date) Current Smoker NA - NA Sex Assigned At : Social History Observation Description Sex Assigned At Unknown Smoking Question Answer Notes Are you a: current smoker How often do you smoke Cigarettes? every day How many cigarettes a day do you smoke? 5 or les s Alcohol Screen Question Answer Notes Did you have a drink containing alcohol in the p ast year? No Points 0 Interpretation Negative Section Notes: pack every 3 days (started w ithin the past 2 wks. 11/23/2020 nb) (started within the past 2 w ks. 11/23/2020 nb) pack every 3 days (started w ithin the past 2 wks. 11/23/2020 nb) pack every 3 days (started w ithin the past 2 wks. 11/23/2020 nb) pack every 3 days (started w ithin the past 2 wks. 11/23/2020 nb) [facility]b) pack every 3 days (started w ithin the past 2 wks. 11/23/2020 nb) pt smokes 2-3 cigarettes a d ay pack every 3 [facility] 11/23/2020 nb) pack [facility] 11/23/2020 nb) pack [facility] 11/23/2020 nb) (started within the past 2 w ks. 11/23/2020 nb) pt smokes 1 pack every 10 da ys pt smokes 2-3 cigarettes a d ay pt smokes 2-3 cigarettes a d ay pt smokes 2-3 cigarettes a d ay pack every 3 days [facility] 11/23/2020 nb) (started within the past 2 w ks. 11/23/2020 nb) (started within the past 2 w ks. 11/23/2020 nb) (started within the past 2 w ks. 11/23/2020 nb) PROBLEMS Problem Type ICD Code Onset Dates Problem Status W/U Status Risk SNOMED Code Notes Problem Essential hypertensi on (I10) Active confirmed 74430650 Problem GERD (gastroesophage al reflux disease) (K21.9) Active confirmed Gastroesophagea l reflux disease (500345106) Problem COPD (chronic obstructive pulmonary disease) (J44.9) Active confirmed COPD - Er Physician daily obstructive pulmonary disease (65117778) Problem Elevated liver enzym es (R74.8) Active confirmed 132317018 Problem Tobacco abuse (Z72.0) Active confirmed 41869593 Problem Obesity (BMI 30-39.9 ) (E66.9) Active confirmed 152298585 Problem Hypertriglyceridemia (E78.1) Active confirmed 541802365 Problem Peripheral vascular disease (I73.9) Active confirmed 358684454 Problem Neuropathy (G62.9) Active confirmed 386 115920 Problem Mixed hyperlipidemia (E78.2) Active confirmed 058416713 Problem Other chronic pain (G89.29) Active confirmed 40453534 Problem Lumbago with sciatic a, right side (M54.41) Active confirmed 931291179088656 Problem Lumbago with sciatic a, left side (M54.42) Active confirmed 606877800 Problem Pulmonary nodules (R91.8) Active confirmed 035431329 Problem Chronic fatigue (R53.82) Active confirmed 11639605 Problem Chronic sinusitis, unspecified location (J32.9) Active confirmed 41823817 Problem DDD (degenerative di sc disease), lumbar (M51.36) Active confirmed 51649632 Problem Seasonal allergic rhinitis due to pollen (J30.1) Active confirmed 12118154 Problem Type 2 diabetes mellitus with diabetic polyneuropathy, without long-term current use of insulin (E11.42) Active confirmed 56420760 Problem Moderate major depression (F32.1) Active confirmed 281985 Problem Hepatocellular carcinoma (C22.0) Active confirmed 507265519 Problem Atherosclerosis of [place] coronary artery of [place] heart with angina pectoris (I25.119) Active confirmed 365970136 Problem Failed back syndrome , lumbar (M96.1) Active confirmed 661213265 Problem Degeneration of intervertebral disc of lumbar region with discogenic back pain and lower extremity pain (M51.362) Active confirmed 49179703 Problem Kidney stone (N20.0) Problem resolved confirmed 64970740 Problem Pericardial effusion (I31.9) Problem resolved confirmed 073091128 Problem Food poisoning, accidental or unintentional, initial encounter (T62.91XA) Problem resolved confirmed 05385837 VITAL SIGNS Blood pressure diastolic 88 mm Hg 05/05/2025 Height 68 in 05/05/2025 Blood pressure systolic 132 mm Hg 05/05/2025 Weight 238.4 lbs 05/05/2025 BMI 36.24 kg/m2 05/05/2025 Encounters Encounter Location Date Provider Diagnosis [place] [id number] 06/10/2024 JASON CANDELARIO [place] [id number] 07/26/2024 JASON CANDELARIO Type 2 diabetes mellitus with diabetic polyneuropathy, without long-term current use of insulin E11.42 ; Essential hypertension I10 ; Mixed hyperlipidemia E78.2 ; Hepatocellular carcinoma C22.0 ; Failed back syndrome, lumbar M96.1 and Neuropathy G62.9 [place] [id number] 07/26/2024 LORRIE FUENTES Medicare annual wellness visit, subsequent Z00.00 [place] [id number] 07/27/2024 JASON CANDELARIO [place] [id number] 08/06/2024 SUSAN MIRAMONTES [place] [id number] 08/09/2024 JASON CANDELARIO [facility] [address], [place] [id number] 08/30/2024 JASON CANDELARIO [place] [id number] 10/06/2024 JASON CANDELARIO [place] [id number] 10/06/2024 JASON CANDELARIO Lower resp. tract infection J22 ; Influenza A J10.1 and COPD with acute exacerbation J44.1 [place] [id number] 10/27/2024 JASON CANDELARIO Type 2 diabetes mellitus with diabetic polyneuropathy, without long-term current use of insulin E11.42 ; Essential hypertension I10 ; Mixed hyperlipidemia E78.2 ; Hepatocellular carcinoma C22.0 ; Failed back syndrome, lumbar M96.1 ; Seasonal allergic rhinitis due to pollen J30.1 and COPD (chronic obstructive pulmonary disease) J44.9 [place] [id number] 01/13/2025 JASON CANDELARIO [address] [address] 02/02/2025 JASON CANDELARIO Type 2 diabetes mellitus with diabetic polyneuropathy, without long-term current use of insulin E11.42 ; Essential hypertension I10 ; Mixed hyperlipidemia E78.2 ; COPD (chronic obstructive pulmonary disease) J44.9 ; Failed back syndrome, lumbar M96.1 ; Neuropathy G62.9 and Seasonal allergic rhinitis due to pollen J30.1 [place] [id number] 03/24/2025 JASON CANDELARIO [place] [id number] 05/05/2025 JASON CANDELARIO Type 2 diabetes mellitus with diabetic polyneuropathy, without long-term current use of insulin E11.42 ; Essential hypertension I10 ; Mixed hyperlipidemia E78.2 ; COPD (chronic obstructive pulmonary disease) J44.9 and Failed back syndrome, lumbar M96.1 [place] [id number] 05/05/2025 NURSING [place] [address] 05/06/2025 JASON CANDELARIO [place] [id number] 2025 JASON CANDELARIO [place] [id number] 05/24/2025 JASON CANDELARIO [place] [id number] 05/24/2025 JASON CANDELARIO Failed back syndrome , lumbar M96.1 ; Degeneration of intervertebral disc of lumbar region with discogenic back pain and lower extremity pain M51.362 ; Lumbago with sciatica, right side M54.41 and Lumbago with sciatica, left side M54.42 [place] [id number] 06/07/2025 JASON CANDELARIO ASSESSMENTS Encounter Date Diagnosis Assessment Notes Treatment Notes Treatment Clinical Notes Section Notes 05/24/2025 Degeneration of intervertebral disc of lumbar region with discogenic back pain and lower extremity pain (ICD-10 - M51.362) 05/24/2025 Failed back syndrome, lumbar (ICD-10 - M96.1) 05/05/2025 Type 2 diabetes mellitus with diabetic [...] initially elevated but improved on recheck. Continue lisinopril/hydroch lorothiazide 20/12.5 mg 2 tablets daily. Discussed diet and weight loss. Watch salt intake. Avoid fried and fatty foods. Will recheck in 3 months. 02/02/2025 Type 2 diabetes mellitus with diabetic [...] 4 months. Blood pressure today is stable. 10/06/2024 Lower resp. tract infection (ICD-10 - J22) Will treat with Augmentin and azithromycin for presumed lower respiratory tract infection and COPD exacerbation. Symptomatic care with saline nasal sprays, salt water gargles, throat lozenges and humidifier encouraged. Diabetic Tussin DM encouraged. Plenty of liquids. Rest. Follow-up if worsening symptoms with increasing shortness of breath, chest pain or weakness and should go to ER if develop. 10/06/2024 Influenza A (ICD-10 - J10.1) Diagnosed almost 10 days ago but not treated with Tamiflu. Outside timeframe for Tamiflu at this time. See lower respiratory tract infection plan for further details. 10/27/2024 Type 2 diabetes mellitus with diabetic polyneuropathy, without long-term current use of insulin (ICD-10 - E11.42) Labs ordered. Continue glipizide ER 10 mg 2 tablets daily and Trulicity 3 mg weekly. Discussed diet and weight loss. Will continue to monitor. Follow-up in 3 to 4 months. Return sooner as needed. 10/27/2024 Essential hypertension (ICD-10 - I10) Labs ordered. Blood pressure under good control. Continue lisinopril/hydroch lorothiazide 20/12.5 mg 2 tablets daily. Discussed diet and weight. Follow-up in 3 to 4 months, return sooner as needed. 07/26/2024 Medicare annual wellness visit, subsequent (ICD-10 - Z00.00) AWV reviewed with pt 07/26/2024 Type 2 diabetes mellitus with diabetic polyneuropathy, without long-term current use of insulin (ICD-10 - E11.42) Labs ordered. Increase Trulicity to 3 mg weekly. Encouraged regular and consistent use of glipizide ER 10 mg 2 tablets daily. Discussed diet and exercise. Recheck in 3 months. 07/26/2024 Essential hypertension (ICD-10 - I10) Labs ordered. Encouraged consistent use of lisinopril/hydroch lorothiazide 20/12.5 mg 2 tablets daily. Blood pressure mildly elevated but has not taken his medicine in several days. Recheck in 3 months. 05/24/2025 Lumbago with sciatica, right side (ICD-10 - M54.41) 05/05/2025 Mixed hyperlipidemia (ICD-10 - E78.2) Get labs done as ordered. Continue fenofibrate 134 mg daily. Discussed diet and weight loss. We will continue to monitor. 02/02/2025 Mixed hyperlipidemia (ICD-10 - E78.2) Labs ordered. Continue fenofibrate 134 mg daily. We will continue to monitor and adjust treatment as indicated. Discussed diet, exercise and weight loss. 10/06/2024 COPD with acute exacerbation (ICD-10 - J44.1) Prednisone taper as discussed and prescribed. Albuterol inhaler and nebulizer as discussed as needed. Continue other inhalers (Breo and Incruse Ellipta). See lower respiratory tract infection plan for further details. 10/27/2024 Mixed hyperlipidemia (ICD-10 - E78.2) Labs ordered. Last lipid panel was stable. Continue fenofibrate 134 mg daily. Discussed diet and weight loss. Will continue to monitor. 07/26/2024 Mixed hyperlipidemia (ICD-10 - E78.2) Labs ordered. Continue fenofibrate 134 mg daily. Discussed diet and exercise. Will continue to monitor. 05/24/2025 Lumbago with sciatica, left side (ICD-10 - M54.42) 05/05/2025 COPD (chronic obstructive pulmonary disease) (ICD-10 - J44.9) Currently stable. Continue Incruse Ellipta 62.5 mcg 1 puff daily and albuterol inhaler and albuterol nebulizer as needed for exacerbations. No recent exacerbations and doing well. We will continue to monitor. 02/02/2025 COPD (chronic obstructive pulmonary disease) (ICD-10 - J44.9) Currently stable. Continue Incruse Ellipta 62.5 mcg 1 puff daily. Albuterol inhaler or nebulizer for rescue as needed. Currently stable and limited use of rescue medications needed recently. Overall feels well and we will continue to monitor. 10/27/2024 Hepatocellular carcinoma (ICD-10 - C22.0) Patient continues to decline further evaluation or treatment. Aware of negative outcomes if no treatment. 07/26/2024 Hepatocellular carcinoma (ICD-10 - C22.0) At this time patient is declining any treatments for his hepatocellular carcinoma. Declines any referrals or follow-ups to specialists. Spent time discussing the risks of not having treatment and eventual outcome and patient understands and is in a stable state of mind to make that decision. Will continue to monitor and can adjust treatment and/or palliation when indicated. 05/05/2025 Failed back syndrome, lumbar (ICD-10 - M96.1) Increase gabapentin 400 mg to 3 tablets in the morning, 3 tablets midday, and 3 tablets at bedtime. Referral to Dr. Gutierrez for second opinion on possible treatments. Ice and heat as discussed. Tramadol if needed. 07/26/2024 Failed back syndrome, lumbar (ICD-10 - M96.1) Patient with chronic pain currently on tramadol 100 mg every 4-6 hours as needed. She is also using gabapentin 400 mg 2 capsules every 8 hours but will increase to 3 capsules in the morning, 2 capsules midday and 3 capsules at bedtime for max dose of 3600 mg a day. He will continue ibuprofen as needed for pain but is encouraged to be careful with use and overuse. Declines any further evaluations or treatment at this time. 10/27/2024 Failed back syndrome, lumbar (ICD-10 - M96.1) Currently stable and continues with chronic pain. Continue gabapentin for 100 mg 3 capsules in the morning, 2 capsules midday and 3 capsules at bedtime. Continue tramadol 100 mg 1 tablet as needed every 4-6 hours. Will continue to monitor. 02/02/2025 Failed back syndrome, [...] - G62.9) See failed back syndrome plan. 10/27/2024 Seasonal allergic rhinitis due to pollen (ICD-10 - J30.1) Seasonal allergies are starting to act up for him. Take either cetirizine or levocetirizine once a day. Fluticasone nasal spray 2 sprays each nostril at bedtime. Azelastine nasal spray 137 mcg 1 spray each nostril twice a day. Saline nasal sprays as discussed. Follow-up as needed. 07/26/2024 Neuropathy (ICD-10 - G62.9) See failed back syndrome plan. 02/02/2025 Seasonal allergic rhinitis due to pollen (ICD-10 - J30.1) Continue cetirizine 10 mg in the morning and levocetirizine 5 mg at bedtime. Continue azelastine nasal spray 1 spray each nostril twice a day. Symptomatic care as discussed. Follow-up if continued or worsening symptoms. 10/27/2024 COPD (chronic obstructive pulmonary disease) (ICD-10 - J44.9) Continue Incruse Ellipta 62.5 mcg 1 puff daily. Albuterol inhaler 2 puffs every 4-6 hours if needed and albuterol nebulizer solution every 6 hours if needed. Currently stable without recent exacerbations. Will continue to monitor. PLAN OF TREATMENT Pending Test Test Name Order Date Liver Biopsy due to mass within liver Urine Microalbumin(Creat/MALB Ratio) AST ( SGOT) 05/25/2021 ALT(DO NOT USE) 05/25/2021 Urine Microalbumin(Creat/MALB Ratio) AST ( SGOT) 11/30/2021 ALT(DO NOT USE) 11/30/2021 AST ( SGOT) 04/04/2022 ALT(DO NOT USE) 04/04/2022 Future Test Test Name Order Date Oximetry (O2 Sat) Rest/Exercise 06/20/20 16 XR : CHEST 2 views PA/LAT - SMA 12/26/19 17 MICROALBUMIN URINE 10/31/2022 Albumin/Creatinine Ratio,Urine-[id number] Next Appt Details Provider Name:JASON CANDELARIO , 07/27/2025 10:00:00 AM, [address] [place] [address], [phone], Insurance Providers Payer Name Payer Address Payer Phone Subscriber Number Group Number Insured Name Patient Relationship to Insured Coverage Start Date Coverage End Date [employer]IC[employer] [address] [place] [address] [id number] TERESA CHARLES Self - patient is the insured 3 [employer] [employer] [address] [place] [address] [id number] TERESA CHARLES Self - patient is the insured 5 [employer] [address] [address] [place] [phone] [id number] TERESA CHARLES Self - patient is the insured MEDICAL (GENERAL) HISTORY Medical History History ICD Code Hepatitis C s/p IFN/ribavirin nephrolithiasis - calcium oxalate stones hypertension erosive esophagitis - EGD 11/13 sigmoid diverticulosis - colonoscopy 5 Arthritis Depression Headaches Hepatitis Liver disease coronary artery disease - Dr Sharron Azul; cath in 02/17 showed non-critical CAD and mild increase in PCWP pulmonary nodules HCP: Mariza Charles (daughter) - Pericardial effusion (resolved 3) Kidney stone (resolved 10/31/2022) Food poisoning, accidental o r unintentional, initial encounter (resolved 10/31/2022) Surgical History Surgery Date(Month/Year) [facility]: 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
--- OUTSIDE RECORDS SUMMARY | 2025-06-10 15:17 | XMS_ITS | Data Portability ---
Author Organization [facility] Phan Abdullahi [facility], [facility] Address [address] [place] [address] Assessment Encounter Date Assessment Date Assessment LastModified by Organization Details LastModified Time 12/03/2023 12/03/2023 63-year-old man with debilitating back and radiating leg pain consistent with postlaminectomy syndrome. No operative lesions identified on his MRI and EMG remarkable for only chronic findings no acute active findings. As such options are limited. I discussed the possibility of a spinal cord stimulator however. Procedure reviewed in detail and questions answered. He wishes to proceed with a trial implant. Will arrange and follow-up thereafter. Natural history reviewed and questions answered. This patient has debilitating back and radiating leg pain refractory to conservative care, thus far. I have recommended a referral for spinal cord stimulator evaluation. Risks and benefits reviewed. I have explained that I do not perform spinal injections and we will refer the patient to a pain management group that does such injections on a routine basis. [email or web address] Not available 12/03/2023 17:17:48 Plan of Treatment Reminders Order Date Submit Date Provider Last Modified By Organization Details Last Modified Time Details Appointments None recorded. Lab None recorded. Referral pain management referral - spinal cord stim trial 2023 024 [email or web address], [address] [place] [address], [place], [address], 11:19:15 Procedures None recorded. Surgeries None recorded. Imaging None recorded. Medication Orders None recorded. Patient TargetsNo targets recorded. Patient InstructionsNo instructions recorded. Reason for Referral Pain Management Referral for Low back pain spinal cord stim trial Referring Physician: Matt Feldman, Orthopedic Surgery, [id number] Encounter Date: 12/03/2023 Results Created Date Observation Date Name Description Value Unit Range Abnormal Flag Note LastModifiedBy Organization Detail LastModifiedTime 04/10/2010/16/2023 imagi ng/di agnos tic resul t No observ ation record ed. [email or web address] Not Available 03/13 09:09:40 04/10/2007/16/2023 imagi ng/di agnos tic resul t No observ ation record ed. [email or web address] Not Available 03/13 09:09:44 Result Notes None recorded. Medical Equipment None Reported. Allergies Allergen ID Allergen Name Allergen Category Reaction Reaction Severity Criticality Documentation Date Start Date Code Code System Note Provider Name and Address Organization Details Recorded Time 316965 fentanyl medicatio n Not available Not available Not available 12/03/2023 4337 RxNorm Tamra welch [place] - [facility] 4 13:46:37 03128 codeine sulfate medicatio n Not available Not available Not available 10/13/20232012 73414 RxNorm Not Available [facility] 4 12:19:34 Medications Name Sig Start Date Stop Date Status Note LastModified by Organization Details LastModified Time atorvastati n 20 mg tablet TAKE 1 TABLET BY MOUTH EVERY DAY active Not Available Not Available No t Available cetirizine 10 mg tablet TAKE 1 TABLET BY MOUTH EVERY DAY active Not Available Not Available No t Available lisinopril 20 mg-hydrochl orothiazide 12.5 mg tablet TAKE 2 TABLETS BY MOUTH EVERY DAY active Not Available Not Available No t Available glipizide ER 10 mg tablet, extended release 24 hr TAKE 2 TABLETS BY MOUTH EVERY DAY active Not Available Not Available No t Available meloxicam 15 mg tablet TAKE 1 TABLET BY MOUTH DAILY active Not Available Not Available No t Available gabapentin 400 mg capsule TAKE 3 CAPSULES BY MOUTH AT BEDTIME active Not Available Not Available No t Available cyanocobala min (vit B-12) 1,000 mcg tablet TAKE 1 TABLET BY MOUTH EVERY DAY active Not Available Not Available No t Available omeprazole 40 mg capsule,del ayed release TAKE 1 CAPSULE BY MOUTH EVERY DAY 30 MINUTES BEFORE BREAKFAST active Not Available Not Available No t Available tramadol 50 mg tablet TAKE 1 TABLET BY MOUTH EVERY 4-6 HOURS NEEDED active Not Available Not Available No t Available fenofibrate micronized 134 mg capsule TAKE 1 CAPSULE BY MOUTH DAILY active Not Available Not Available No t Available tamsulosin 0.4 mg capsule TAKE 1 CAPSULE BY MOUTH EVERY DAY active Not Available Not Available No t Available pseudoephed rine-guaife nesin ER 80-700 mg tablet,exte nded release Percocet 5-325MG Tablet 1-2 Q 4-6 Hours Prn 12/02 completed Statu s: 'Curr ent'; Not Available Not Available Not Available scopolamine 1 mg over 3 days transdermal patch APPLY 1 PATCH BEHIND LEFT EAR EVERY 72 HOURS 12/02 completed Not Available Not Available Not Available hydromorpho ne 4 mg tablet TAKE 1 TABLET BY MOUTH EVERY 4 HOURS NEEDED FOR PAIN 12/02 completed Not Available Not Available Not Available ondansetron 4 mg disintegrat ing tablet DISSOLVE 1 TABLET ON THE TONGUE EVERY 8 HOURS NEEDED FOR NAUSEA active Not Available Not Available No t Available fluticasone propionate 50 mcg/actuati on nasal spray,suspe nsion SHAKE LIQUID AND USE 1 SPRAY IN EACH NOSTRIL TWICE DAILY active Not Available Not Available No t Available enoxaparin 40 mg/0.4 mL subcutaneou s syringe INJECT THE CONTENTS OF 1 SYRINGE SUBCUTANE OUSLY EVERY DAY active Not Available Not Available No t Available varenicline tartrate 1 mg tablet TAKE 1 TABLET BY MOUTH TWICE DAILY active Not Available Not Available No t Available levocetiriz ine 5 mg tablet TAKE 1 TABLET BY MOUTH DAILY IN THE EVENING active Not Available Not Available No t Available oxycodone HCl-oxycodo ne-ASA oxyCODONE HCl 5MG Tablet 12/02 completed Statu s: 'Curr ent'; Not Available Not Available Not Available Breo Ellipta 100 mcg-25 mcg/dose powder for inhalation INHALE 1 PUFF BY MOUTH AT THE SAME TIME EVERY DAY active Not Available Not Available No t Available Incruse Ellipta 62.5 mcg/actuati on powder for inhalation INHALE 1 PUFF BY MOUTH AT THE SAME TIME EVERY DAY active Not Available Not Available No t Available Ozempic 0.25 mg or 0.5 mg (2 mg/3 mL) subcutaneou s pen injector INJECT 0.5MG WEEKLY UNDER THE SKIN DIRECTED active Not Available Not Available No t Available Vitals Date Recorded Body height Body mass index (BMI) Body weight Provider Name and Address Organization Details Last Updated DateTime 12/03/2023 175.26 cm 31 kg/m2 52846.4 g Tamra ritchie [facility] 12/03/2023 13:46:23 Social History None recorded. Functional Status None recorded. Mental Status None recorded. Family History Nothing Reported. Medical History No medical history recorded. Past Encounters Encounter ID Performer Location Encounter Start Date Encounter Closed Date Diagnosis/Indication Diagnosis SNOMED-CT Code Diagnosis ICD10 Code Diagnosis IMO Codes Diagnosis Note [id number] Matt Feldman MD [facility] [address] [place] [address] 12/03/2023 13:34:17 12/24/2023 09:27:15 Low back pain 001312420 M54.50 Health Concerns Section Related Observation LastModified by Organization Detai ls LastModified Time None Recorded Concern Status LastModified by Organization Details LastModified Time None Recorded Advance Directives Directive None Recorded Payers Insurance Date Sequence Insurance Name Policy Number Policy Jimenes Covered Member ID Jimenes Member ID Guarantor Name 12/03/2023 1 [place] [employer] Garry Charles [id number] Garry Charles Notes Date Note Type Note Provider Name and Address Organization Details Recorded Time 12/03/2023 text/html ROS as noted in the HPI HPI: 63-year-old man with debilitating back and radiating leg pain for many years time. Last seen for this several months ago. EMG ordered. Study reviewed. Notable for chronic nonactive L5-S1 lumbosacral radiculopathy left. No evidence of any polyneuropathy or other findings. Patient's symptoms remain the same. Debilitating radiating left leg pain. Status post previous surgery. Postop MRI is unremarkable for any surgical lesions. WORK STATUS: Not working [facility]MS[facility] and ROS has been reviewed, updated, and is located in the patient's chart RADIOGRAPHS: PHYSICAL EXAMINATION: Matt Feldman MD [address], [place], [address], [facility] 12/03/2023 17:18:14
--- OUTSIDE RECORDS SUMMARY | 2025-06-10 15:17 | XMS_ITS | Data Portability ---
Author Organization [place] - [facility], Allergy Address [address] [address] Care Team Providers Care Cuff Runner Name Role Phone JASON CANDELARIO Primary Care Provider Assessment Encounter Date Assessment Date Assessment LastModified by Organization Details LastModified Time 06/08/2024 06/08/2024 Patient with history of type 2 diabetes, COPD and chronic postnasal drip. Examination shows septal deviation to the left side without obvious polyps or colored nasal discharge. I have suggested he stop the antihistamines and nasal steroids as they are not helping and he already had a negative allergy evaluation. Suggest trial of Atrovent 2 sprays each nostril [address] Arrange for [address] scan to rule out chronic sinusitis [email or web address] Not available 06/08/2024 11:10:01 06/28/2024 06/28/2024 Feels he is stil l having rhinorrhea and needs allergy meds. He had negative allergy eval. we can try the 0.06% ipratropium bromide. He still feels the need for antihistamines. No evidence of sinus disease on CT. I would hold off on surgical intervention at the present time. Follow-up in 4 to 5 months. [email or web address] Not available 06/28/2024 13:40:27 11/09/2024 11/09/2024 64-year-old male presents for reevaluation of chronic rhinitis. Exam is fairly unremarkable. Per his request I have ordered RAST testing to confirm negative allergies. Primarily he is concerned about fatigue which I have recommended he discuss with his primary care. Has been evaluated by Dr. Leone who did not recommend any surgical intervention given negative CT of the sinuses. If RAST testing continues to show negative allergy would not recommend immunotherapy. All questions were answered. [email or web address] Not available 11/09/2024 12:32:09 Plan of Treatment Reminders Order Date Submit Date Provider Last Modified By Organization Details Last Modified Time Details Appointments None recorded. Lab unlisted lab - allergens , zone 1 2024 025 [email or web address] [facility] (Centralized Electronic Ordering - All Locations), Patient Can Go To The Location Of Their Choice, 10:37:31 nettle IgE Ab, serum 2024 025 [email or web address] [facility] (Centralized Electronic Ordering - All Locations), Patient Can Go To The Location Of Their Choice, 10:37:31 bahia grass IgE Ab, quantitat girish, serum 2024 025 [email or web address] [facility] (Centralized Electronic Ordering - All Locations), Patient Can Go To The Location Of Their Choice, 10:37:31 bermuda grass ige, serum 2024 025 [email or web address] [facility] (Centralized Electronic Ordering - All Locations), Patient Can Go To The Location Of Their Choice, 10:37:31 kinyarwanda plantain ige, serum 2024 025 [email or web address] [facility] (Centralized Electronic Ordering - All Locations), Patient Can Go To The Location Of Their Choice, 10:37:31 ige, total, serum 2024 025 [email or web address] [facility] (Centralized Electronic Ordering - All Locations), Patient Can Go To The Location Of Their Choice, 10:37:31 Referral None recorded. Procedures None recorded. Surgeries None recorded. Imaging CT, sinuses, w/o contrast 2023 024 [email or web address] [facility], [address] [place] [address], [phone], 4 14:12:30 CT, maxillofa cial, w/o contrast - can be on PA schedule 2023 024 [email or web address] [facility], [address] [place] [address], [phone], 4 08:59:38 Medication Orders ipratropi um bromide 42 mcg (0.06 %) nasal spray 2023 024 [id number], [address] [place] [address], [id number], 4 13:39:09 ipratropi um bromide 21 mcg (0.03 %) nasal spray 2023 025 [id number], [address] [place] [address], [id number], 5 11:34:25 Patient TargetsNo targets recorded. Patient InstructionsNo instructions recorded. Reason for Referral None Reported. Results Created Date Observation Date Name Description Value Unit Range Abnormal Flag Note LastModifiedBy Organization Detail LastModifiedTime 06/28/[address], sinus es, w/o contr ast No observ ation record ed. [email or web address] [address], [address], 06/28/2024 13:38:33 07/08/20 24 06/28/2024 CT, sinus es, w/o contr ast No observ ation record ed. [email or web address] [facility] [address], [address], 07/08/2024 11:41:01 Result Notes None recorded. Problems Name Problem SNOMED Code Status Onset Date Resolution Date Notes Provider Name and Address Organization Details Recorded Time Chronic rhinitis 98679002 Active 2023 MAXIM FAIRCHILD MD [address], [address] , [facility] [place] 4 11:08:42 Deviated nasal septum 844463559 Active 2023 MAXIM FAIRCHILD MD [address], [facility] [place], [address], [facility] - [facility] 4 11:08:53 Type 2 diabetes mellitus 16355251 Active 2023 MAXIM FAIRCHILD MD [address] [facility] [address], [facility] [place], [address], [facility] - [facility] 4 11:09:07 Chronic obstructive pulmonary disease 61829572 Active 2023 MAXIM FAIRCHILD MD [address] [facility], [facility] [place], [address], [facility] 4 11:09:13 Vasomotor rhinitis 4888638 Active 2023 MAXIM FAIRCHILD MD 100 [facility], [facility] [place], [address], [facility] 4 13:38:41 Problem Notes None recorded. Medical Equipment None Reported. Allergies No known drug allergies Medications Name Sig Start Date Stop Date Status Note LastModified by Organization Details LastModified Time albuterol sulfate 2.5 mg/3 mL (0.083 %) solution for nebulizatio n USE 3 ML VIA NEBULIZER EVERY 6 HOURS NEEDED active Not Available Not Available No t Available cetirizine 10 mg tablet TAKE 1 TABLET BY MOUTH EVERY DAY active Not Available Not Available No t Available lisinopril 20 mg-hydrochl orothiazide 12.5 mg tablet TAKE 2 TABLETS BY MOUTH DAILY active Not Available Not Available No t Available azithromyci n 250 mg tablet TAKE 2 TABLETS BY MOUTH FOR 1 DAY THEN TAKE 1 TABLET BY MOUTH FOR 4 DAYS 11/09 completed Not Available Not Available Not Available glipizide ER 10 mg tablet, extended release 24 hr TAKE 2 TABLETS BY MOUTH EVERY DAY active Not Available Not Available No t Available meloxicam 15 mg tablet TAKE 1 TABLET BY MOUTH DAILY 06/08 completed Not Available Not Available Not Available prednisone 20 mg tablet TAKE 3 TABLETS BY MOUTH AT THE SAME TIME IN THE MORNING FOR 3 DAYS THEN TAKE 2 TABLETS BY MOUTH FOR 3 DAYS THEN TAKE 1 TABLET BY MOUTH FOR 3 DAYS 11/09 completed Not Available Not Available Not Available gabapentin 400 mg capsule TAKE 3 CAPSULES BY MOUTH EVERY MORNING AND TAKE 2 CAPSULES BY MOUTH MIDDAY AND 3 CAPSULES BY MOUTH EVERY NIGHT AT BEDTIME active Not Available Not Available No t Available cyanocobala min (vit B-12) 1,000 mcg tablet TAKE 1 TABLET BY MOUTH DAILY active Not Available Not Available No t Available omeprazole 40 mg capsule,del ayed release TAKE 1 CAPSULE BY MOUTH DAILY 30 MINUTES BEFORE BREAKFAST active Not Available Not Available No t Available tramadol 50 mg tablet TAKE 1 TABLET BY MOUTH EVERY 4 TO 6 HOURS NEEDED 06/08 completed Not Available Not Available Not Available ondansetron 8 mg disintegrat ing tablet DISSOLVE 1 TABLET ON THE TONGUE EVERY 6 HOURS NEEDED 11/09 completed Not Available Not Available Not Available fenofibrate micronized 134 mg capsule TAKE 1 CAPSULE BY MOUTH DAILY active Not Available Not Available No t Available tamsulosin 0.4 mg capsule TAKE 1 CAPSULE BY MOUTH DAILY active Not Available Not Available No t Available azelastine 137 mcg (0.1 %) nasal spray USE 1 SPRAY IN EACH NOSTRIL TWICE A DAY active Not Available Not Available No t Available scopolamine 1 mg over 3 days transdermal patch APPLY 1 PATCH BEHIND LEFT EAR EVERY 72 HOURS 06/08 completed Not Available Not Available Not Available albuterol sulfate HFA 90 mcg/actuati on aerosol inhaler INHALE 2 PUFFS EVERY 4-6 HOURS NEEDED WHEEZING active Not Available Not Available No t Available ipratropium bromide 42 mcg (0.06 %) nasal spray USE 2 SPRAYS IN EACH NOSTRIL THREE TIMES DAILY active Not Available Not Available No t Available hydromorpho ne 4 mg tablet TAKE 1 TABLET BY MOUTH EVERY 4 HOURS NEEDED FOR PAIN 06/08 completed Not Available Not Available Not Available ondansetron 4 mg disintegrat ing tablet DISSOLVE 1 TABLET ON THE TONGUE EVERY 8 HOURS NEEDED FOR NAUSEA 06/08 completed Not Available Not Available Not Available fluticasone propionate 50 mcg/actuati on nasal spray,suspe nsion SHAKE LIQUID AND USE 1 SPRAY IN EACH NOSTRIL TWICE DAILY active Not Available Not Available No t Available ipratropium bromide 21 mcg (0.03 %) nasal spray USE 2 SPRAYS IN EACH NOSTRIL THREE TIMES DAILY 11/09 completed Not Available Not Available Not Available amoxicillin 875 mg-rosalba sow clavulanate 125 mg tablet TAKE 1 TABLET BY MOUTH EVERY 12 HOURS FOR 7 DAYS 11/09 completed Not Available Not Available Not Available enoxaparin 40 mg/0.4 mL subcutaneou s syringe INJECT THE CONTENTS OF 1 SYRINGE SUBCUTANE OUSLY EVERY DAY 06/08 completed Not Available Not Available Not Available varenicline tartrate 1 mg tablet TAKE 1 TABLET BY MOUTH TWICE DAILY active Not Available Not Available No t Available levocetiriz ine 5 mg tablet TAKE 1 TABLET BY MOUTH DAILY IN THE EVENING active Not Available Not Available No t Available Breo Ellipta 100 mcg-25 mcg/dose powder for inhalation INHALE 1 PUFF BY MOUTH AT THE SAME TIME EVERY DAY active Not Available Not Available No t Available Trulicity 1.5 mg/0.5 mL subcutaneou s pen injector ADMINISTE R 1.5 MG UNDER THE SKIN WEEKLY 11/09 completed Not Available Not Available Not Available Incruse Ellipta 62.5 mcg/actuati on powder for inhalation INHALE 1 PUFF BY MOUTH AT THE SAME TIME EVERY DAY active Not Available Not Available No t Available tramadol 100 mg tablet TAKE 1 TABLET BY MOUTH EVERY 4 - 6 HOURS NEEDED active Not Available Not Available No t Available Trulicity 3 mg/0.5 mL subcutaneou s pen injector ADMINISTE R 3 MG UNDER THE SKIN WEEKLY 11/09 completed Not Available Not Available Not Available Ozempic 0.25 mg or 0.5 mg (2 mg/3 mL) subcutaneou s pen injector ADMINISTE R 0.5MG UNDER THE SKIN ONCE A WEEK 11/09 completed Not Available Not Available Not Available Vitals Date Recorded Body height Body mass index (BMI) Body weight Provider Name and Address Organization Details Last Updated DateTime 11/09/2024 172.72 cm 32.7 kg/m2 32544.36 g Aracely Penn [place] - [facility] 11/09/2024 11:33:37 Date Recorded Body height Body mass index (BMI) Body weight Provider Name and Address Organization Details Last Updated DateTime 06/08/2024 175.26 cm 31.5 kg/m2 33633.17 g Gudelia Bella [place] - [facility] 06/08/2024 11:00:00 Social History Question Answer Notes LastModified by Organizat ion Details LastModified Time Tobacco Smoking Status Current Some Day Smoker MAXIM LEONE MD [address] [place] [address], [phone], [facility] - [facility] 06/08/2024 11:07:54 What Is Your Current Pack Years? [email or web address] ears Information not available 06/08/2024 How Much Tobacco Do You Smoke? 1 PPW Information not available 06/08/2024 Sex: Unknown Functional Status Question Answer Note LastModified by Organizat ion Details LastModified Time What is your level of alcohol consumption? None none c x 40 yrs Information not available 06/08/2024 Mental Status None recorded. Family History Nothing Reported. Medical History Condition Response Emphysema Y Diabetes Y Liver Disease Y Heart Problems Y Cancer Y Hypertension Y COPD Y Past Encounters Encounter ID Performer Location Encounter Start Date Encounter Closed Date Diagnosis/Indication Diagnosis SNOMED-CT Code Diagnosis ICD10 Code Diagnosis IMO Codes Diagnosis Note [id number] MAXIM RAMACHANDRAN MD [facility] [address] [address] 06/08/2024 10:36:47 06/08/2024 11:33:19 Chronic rhinitis 07993592 J31.0 Deviated nasal septum 12 2971989 J34.2 Type 2 walter betes mellitus 40617161 E11.9 Chronic ob structive pulmonary disease 01176436 J44.9 [id number] MAXIM RAMACHANDRAN MD [facility] [address] [address] 06/28/2024 13:12:47 06/28/2024 14:07:59 Chronic rhinitis 86458458 J31.0 Deviated nasal septum 12 3139372 J34.2 Type 2 walter betes mellitus 74793309 E11.9 Chronic ob structive pulmonary disease 80415114 J44.9 Vasomotor rhinitis 90358 03 J30.0 [id number] AMY CARTER PA-C [facility] [address] [place] [address] 11/09/2024 11:14:56 11/09/2024 11:44:43 Chronic rhinitis 56738530 J31.0 Vasomotor rhinitis 35624 03 J30.0 Health Concerns Section Related Observation LastModified by Organization Detai ls LastModified Time None Recorded Concern Status LastModified by Organization Details LastModified Time None Recorded Advance Directives Directive None Recorded Payers Insurance Date Sequence Insurance Name Policy Number Policy Jimenes Covered Member ID Jimenes Member ID Guarantor Name 12/04/2024 2 [place] [facility] Garry Chambers Araceli [id number] Garrylinden Charles 11/09/2024 1 [place] [employer] Garry Chambers Araceli [id number] Garrylinden Charles Notes Date Note Type Note Provider Name and Address Organization Details Recorded Time 06/08/2024 text/html Patient with history of diabetes seen for an opinion regarding several years of nasal congestion and sinus drainage. He is at his wits and with the amount of phlegm and postnasal drip. He feels it is causing him to vomit. He has tried cetirizine, fluticasone and levocetirizine.Saw Dr Kwan--no allergyHx of COPDSmoke 1.5 pack per week nowNo alcohol for 40 yearsSnot= 52Nose= 70 MAXIM LEONE MD [address] [place] [address],[address], [address], [facility] - [facility] 06/08/2024 12:48:16 06/28/2024 text/html Patient seen in follow-up for chronic nasal obstruction with negative allergy evaluation last visit. Patient with history of type 2 diabetes, COPD and chronic postnasal drip. Examination shows septal deviation to the left side without obvious polyps or colored nasal discharge. I have suggested he stop the antihistamines and nasal steroids as they are not helping and he already had a negative allergy evaluation. Suggest trial of Atrovent 2 sprays each nostril 3 times daily. Arrange for CT scan to rule out chronic sinusitis MAXIM LEONE MD [address] [place] [address],[place] [address], [place], [address], [place] - [facility] 06/28/2024 13:40:31 11/09/2024 text/html ROS as noted in the HPI 64-year-old male presents for reevaluation of rhinitis. His rhinitis is severe and keeping him up at night. Has had a negative CT scan of the sinuses. Had allergy testing with outside spring fitter which was negative. He does not believe that this was a valid test. He was prescribed Atrovent and states it has not done anything for his symptoms. EL HUBBARD MD [address] [place] [address], [address], [facility] - [facility] 11/09/2024 16:55:04
--- OUTSIDE RECORDS SUMMARY | 2025-06-10 15:18 | XMS_ITS | Data Portability ---
Author Organization [facility] Pain [facility], PAIN OFFICE Address [address] [facility] [address] [place] [address] Care Team Providers Care General Car Yard Supervisor Name Role Phone JASON CANDELARIO Primary Care Provider [phone] Assessment Encounter Date Assessment Date Assessment LastModified by Organization Details LastModified Time 09/18/2022 09/18/2022 Garry Charles is a 62 year old man with low back pain radiating into right lower extremity for the past six months. On exam, he has a positive straight leg raising test on the right. MRI Lumbar spine shows L5-S1: Posterior disc osteophyte complex asymmetric towards the left abutting the left S1 nerve root. Probable left laminotomy defect. There is enhancing tissue in the epidural space mostly on the left side but likely reflect postsurgical scarring. No significant canal stenosis. The neural foramina are partially distorted by metallic artifact, but there is probably moderate left and mild right neural foraminal narrowing. He is here for a trial of Lumbar epidural steroid injections under fluoroscopic guidance . The risks and benefits of the procedure were discussed in detail. He wishes to proceed. He will follow up in four weeks [email or web address] Not available 09/18/2022 10:55:31 10/21/2022 10/21/2022 Garry Charles is a 62 year old man with low back pain radiating into right lower extremity for the past six months. On exam, he has a positive straight leg raising test on the right. MRI Lumbar spine shows L5-S1: Posterior disc osteophyte complex asymmetric towards the left abutting the left S1 nerve root. Probable left laminotomy defect. There is enhancing tissue in the epidural space mostly on the left side but likely reflect postsurgical scarring. No significant canal stenosis. The neural foramina are partially distorted by metallic artifact, but there is probably moderate left and mild right neural foraminal narrowing. Repeat Lumbar epidural steroid injections under fluoroscopic guidance was recommended. The risks and benefits of the procedure were discussed in detail. He wishes to proceed. An appointment has been booked for the same. He needs a yard truck driver on the day of the procedure. [email or web address] Not available 10/21/2022 11:44:08 12/10/2022 12/10/2022 Garry Charles is a 62 year old man with low back pain radiating into right lower extremity for the past six months. On exam, he has a positive straight leg raising test on the right. MRI Lumbar spine shows L5-S1: Posterior disc osteophyte complex asymmetric towards the left abutting the left S1 nerve root. Probable left laminotomy defect. There is enhancing tissue in the epidural space mostly on the left side but likely reflect postsurgical scarring. No significant canal stenosis. The neural foramina are partially distorted by metallic artifact, but there is probably moderate left and mild right neural foraminal narrowing. He is here for a Lumbar epidural steroid injections under fluoroscopic guidance . The risks and benefits of the procedure were discussed in detail. He wishes to proceed. He will follow up in four to eight weeks [email or web address] Not available 12/10/2022 14:53:22 02/06/2023 02/06/2023 Garry Charles is a 62 year old man with low back pain radiating into right lower extremity for the past six months. On exam, he has a positive straight leg raising test on the right. MRI Lumbar spine shows L5-S1: Posterior disc osteophyte complex asymmetric towards the left abutting the left S1 nerve root. Probable left laminotomy defect. There is enhancing tissue in the epidural space mostly on the left side but likely reflect postsurgical scarring. No significant canal stenosis. The neural foramina are partially distorted by metallic artifact, but there is probably moderate left and mild right neural foraminal narrowing. Repeat Lumbar epidural steroid injections under fluoroscopic guidance was recommended. The risks and benefits of the procedure were discussed in detail. He wishes to proceed. An appointment has been booked for the same. He needs a yard truck driver on the day of the procedure. [email or web address] Not available 02/06/2023 14:52:09 03/11/2023 03/11/2023 Garry Charles is a 62 year old man with low back pain radiating into right lower extremity for the past six months. On exam, he has a positive straight leg raising test on the right. MRI Lumbar spine shows L5-S1: Posterior disc osteophyte complex asymmetric towards the left abutting the left S1 nerve root. Probable left laminotomy defect. There is enhancing tissue in the epidural space mostly on the left side but likely reflect postsurgical scarring. No significant canal stenosis. The neural foramina are partially distorted by metallic artifact, but there is probably moderate left and mild right neural foraminal narrowing. He is here for a Lumbar epidural steroid injections under fluoroscopic guidance . The risks and benefits of the procedure were discussed in detail. He wishes to proceed. He will follow up in four to eight weeks [email or web address] Not available 03/11/2023 14:35:30 Plan of Treatment Reminders Order Date Submit Date Provider Last Modified By Organization Details Last Modified Time Details Appointments None record ed. Lab None record ed. Referral None record ed. Procedures None record ed. Surgeries None record ed. Imaging None record ed. Medication Orders None record ed. Patient TargetsNo targets recorded. Patient Instructions Encounter Date Encounter Id Patient Instructions Last Modified By Organization Details Last Modified Time 09/18/2022 [id number] He was advised against bed rest lasting longer than four days and to continue activities as tolerated. [email or web address] Not available 09/18/2022 10:55:00 10/21/2022 [id number] He was advised against bed rest lasting longer than four days and to continue activities as tolerated. [email or web address] Not available 10/21/2022 11:43:59 12/10/2022 [id number] He was advised against bed rest lasting longer than four days and to continue activities as tolerated. [email or web address] Not available 12/10/2022 14:52:02 02/06/2023 [id number] He was advised against bed rest lasting longer than four days and to continue activities as tolerated. [email or web address] Not available 02/06/2023 14:52:13 03/11/2023 [id number] He was advised against bed rest lasting longer than four days and to continue activities as tolerated. [email or web address] Not available 03/11/2023 14:35:31 Reason for Referral None Reported. Problems Name Problem SNOMED Code Status Onset Date Resolution Date Notes Provider Name and Address Organization Details Recorded Time Lumbar radiculopathy 667157837 Active Digna Delgado null, [place] [facility] 2 09:14:09 Degeneration of lumbar intervertebral disc 85241834 Active Digna Delgado null, [place] [facility] 2 09:14:30 Lumbar post-laminecto my syndrome 403450721 Active Digna Delgado null, [place] [facility] 2 09:14:49 Problem Notes None recorded. Procedures Surgical History Date Name Laterality Status Provider Name and Address Organization Details Recorded Time 03/11/20 Lumbar Epidural steroid injection under fluoroscopic guidance completed Mery Stanford MD [address] , [address], [place], [address], [place] [facility] 03/11/2023 14:36:23 12/11/19 23 Lumbar Epidural steroid injection under fluoroscopic guidance completed Mery Stanford MD [address] , [address], [place], [address], [place] [facility] 12/10/2022 14:52:51 09/18/19 23 Lumbar Epidural steroid injection under fluoroscopic guidance completed Mery Stanford MD [address] , [address], [place], [address], [place] [facility] 09/18/2022 10:53:01 Back Surgery completed Digna Delgado [place] [facility] 06/24/2022 09:15:50 Cholecystectomy completed Digna Delgado [place] - [facility] 06/24/2022 09:15:58 surgical procedure on cervical spine completed Digna Delgado [place] [facility] 06/24/2022 09:16:16 ureterorenoscopy with fragmentation and removal of calculus of kidney completed Digna Delgado [place] [facility] 06/24/2022 09:16:35 Angioplasty completed Digna Delgado [place] [facility] 06/24/2022 09:16:47 Imaging Results None recorded. Procedure Notes None recorded. Medical Equipment None Reported. Allergies Allergen ID Allergen Name Allergen Category Reaction Reaction Severity Criticality Documentation Date Start Date Code Code System Note Provider Name and Address Organization Details Recorded Time codeine medicatio n rash moderate Not available 06/24/2022 2670 RxNorm Digna Delgado null, [place] [facility] 2 08:48:17 Medications Name Sig Start Date Stop Date Status Note LastModified by Organization Details LastModified Time atorvasta tin 20 mg tablet TAKE 1 TABLET BY MOUTH EVERY DAY active Not Available Not Available No t Available cetirizin e 10 mg tablet TAKE 1 TABLET BY MOUTH EVERY DAY active Not Available Not Available No t Available lisinopri l 20 mg-hydroc hlorothia zide 12.5 mg tablet TAKE 2 TABLETS BY MOUTH EVERY DAY active Not Available Not Available No t Available glipizide ER 10 mg tablet, extended release 24 hr TAKE 2 TABLETS BY MOUTH EVERY DAY active Not Available Not Available No t Available meloxicam 15 mg tablet TAKE 1 TABLET BY MOUTH EVERY DAY active Not Available Not Available No t Available gabapenti n 400 mg capsule TAKE 3 CAPSULES BY MOUTH TWICE DAILY IN THE MORNING AND IN THE EVENING active Not Available Not Available No t Available glipizide ER 5 mg tablet, extended release 24 hr TAKE 1 TABLET BY MOUTH EVERY DAY active Not Available Not Available No t Available cyanocoba gonzalez (vit B-12) 1,000 mcg tablet TAKE 1 TABLET BY MOUTH EVERY DAY active Not Available Not Available No t Available omeprazol e 40 mg capsule,d elayed release TAKE 1 CAPSULE BY MOUTH EVERY DAY 30 MINUTES BEFORE BREAKFAS T active Not Available Not Available No t Available tramadol 50 mg tablet TAKE 1 TABLET BY MOUTH EVERY 4-6 HOURS NEEDED active Not Available Not Available No t Available fenofibra te micronize d 134 mg capsule TAKE 1 CAPSULE BY MOUTH EVERY DAY active Not Available Not Available No t Available tamsulosi n 0.4 mg capsule TAKE 1 CAPSULE BY MOUTH EVERY DAY active Not Available Not Available No t Available gabapenti n 300 mg capsule 06/24 completed Not Available Not Available Not Available monteluka st 10 mg tablet TAKE 1 TABLET BY MOUTH EVERY DAY 06/24 completed Not Available Not Available Not Available albuterol sulfate HFA 90 mcg/actua tion aerosol inhaler INHALE 2 PUFFS BY MOUTH EVERY 4 TO 6 HOURS NEEDED active Not Available Not Available No t Available ipratropi um bromide 42 mcg (0.06 %) nasal spray USE 1 TO 2 SPRAYS IN EACH NOSTRIL UP TO THREE TIMES DAILY NEEDED FOR RUNNY NOSE active Not Available Not Available No t Available ondansetr on 4 mg disintegr ating tablet DISSOLVE 1 TABLET ON THE TONGUE EVERY 8 HOURS NEEDED FOR NAUSEA active Not Available Not Available No t Available fluticaso ne propionat e 50 mcg/actua tion nasal spray,laura pension SHAKE LIQUID AND USE 1 TO 2 SPRAYS IN EACH NOSTRIL EVERY DAY NEEDED active Not Available Not Available No t Available metformin ER 500 mg tablet,ex tended release 24 hr TAKE 2 TABLETS BY MOUTH EVERY DAY active Treats Type II Diabetes Not Available Not Available Not Available sertralin e 50 mg tablet TAKE 1 TABLET BY MOUTH EVERY DAY 06/24 completed Not Available Not Available Not Available duloxetin e 30 mg capsule,d elayed release TAKE 1 CAPSULE BY MOUTH DAILY FOR 7 DAYS THEN TAKE 2 CAPSULES BY MOUTH EVERY DAY FOR 30 DAYS 06/24 completed Not Available Not Available Not Available varenicli ne tartrate 1 mg tablet TAKE 1 TABLET BY MOUTH TWICE DAILY active Not Available Not Available No t Available levocetir izine 5 mg tablet TAKE 1 TABLET BY MOUTH EVERY DAY IN THE EVENING active Not Available Not Available No t Available Breo Ellipta 100 mcg-25 mcg/dose powder for inhalatio n INHALE 1 PUFF BY MOUTH AT THE SAME TIME EVERY DAY active Not Available Not Available No t Available Incruse Ellipta 62.5 mcg/actua tion powder for inhalatio n INHALE 1 PUFF BY MOUTH AT THE SAME TIME EVERY DAY active Not Available Not Available No t Available Ozempic 0.25 mg or 0.5 mg (2 mg/3 mL) subcutane ous pen injector active Not Available Not Available Not Available Vitals Date Recorded Body height Body mass index (BMI) Body weight Heart rate Oxygen saturation Oxygen saturation in Arterial blood by Pulse oximetry Pain severity - 0-10 verbal numeric rating [Score] - Reported Systolic And Diastolic Provider Name and Address Organization Details Last Updated DateTime 3 172.72 cm 35 kg/m2 338906. 25 g 80 /min 97 % 97 % 3 131/77 mm[Hg] [facility] 3 11:26:47 Date Recorded Body height Heart rate Oxygen saturation Oxygen saturation in Arterial blood by Pulse oximetry Systolic And Diastolic Provider Name and Address Organization Details Last Updated DateTime 3 172.72 cm 110 /min 95 % 95 % 134/84 mm[Hg] Mae Putz [place] [facility] 3 14:33:23 Date Recorded Body height Heart rate Oxygen saturation Oxygen saturation in Arterial blood by Pulse oximetry Pain severity - 0-10 verbal numeric rating [Score] - Reported Body mass index (BMI) Body weight Systolic And Diastolic Provider Name and Address Organization Details Last Updated DateTime 3 172.72 cm 77 /min 96 % 96 % 5 35 kg/m2 810957. 25 g 119/87 mm[Hg] Mery alcala MD [address] [facility] , [address], [place], [address], [place] - [facility] 3 11:11:12 Date Recorded Body height Heart rate Oxygen saturation Oxygen saturation in Arterial blood by Pulse oximetry Systolic And Diastolic Provider Name and Address Organization Details Last Updated DateTime 3 172.72 cm 110 /min 96 % 96 % 136/92 mm[Hg] Brooklynn [place] - [facility] 3 13:30:16 Social History Question Answer Notes LastModified by Organizat ion Details LastModified Time Tobacco Smoking Status Current Every Day Smoker Digna [place] [facility] 06/24/2022 09:00:41 Do You Have An Advance Directive? No Information not available 06/24/2022 Are You Blind Or Do You Have Difficulty Seeing? Yes Wears Glasses For Driving Information not available 06/24/2022 In The 14 Days Before Symptom Onset, Have You Had Close Contact With A Laboratory-confi rmed COVID-19 While That Case Was Ill? No Information not available 06/24/2022 In The 14 Days Before Symptom Onset, Have You Had Close Contact With A Person Who Is Under Investigation For COVID-19 While That Person Was Ill? No Information not available 06/24/2022 Have You Been To An Area Known To Be High Risk For COVID-19? No Information not available 06/24/2022 Are You Deaf Or Do You Have Serious Difficulty Hearing? Yes UTE; Has Hearing Aids But Has Not Used Them. Information not available 06/24/2022 What Is The Highest Grade Or Level Of School You Have Completed Or The Highest Degree You Have Received? AH02224-5 Information not available 06/24/2022 How Many Days Of Moderate To Strenuous Exercise, Like A Brisk Walk, Did You Do In The Last 7 Days? 0 Takes Dog Out Everyday; Short Nonstrenuous Exercise. Information not available 06/24/2022 What Is Your Relationship Status? Information not available 06/24/2022 How Much Tobacco Do You Smoke? 1 PPW Information not available 06/24/2022 How Many Years Have You Smoked Tobacco? 50 Information not available 06/24/2022 Do You Have Difficulty Walking Or Climbing Stairs? Yes Able To Walk Up Stairs With Cane Information not available 06/24/2022 Sex: Unknown Functional Status Question Answer Note LastModified by Snowman Details LastModified Time Do you use any illicit or recreational drugs? No Information not available 06/24/2022 Do you or have you ever used any other forms of tobacco or nicotine? No Information not available 06/24/2022 What is your level of alcohol consumption? None Information not available 06/24/2022 Are you currently employed? No Disability Information not available 06/24/2022 Do you have difficulty doing errands alone? No Information not available 06/24/2022 Do you have difficulty dressing, bathing, grooming, or toileting? No Information not available 06/24/2022 Mental Status Question Answer Note LastModified by [employer] Details LastModified Time Do you feel stressed (tense, restless, nervous, or anxious, or unable to sleep at night)? [id number] Information not available 06/24/2022 Do you have difficulty concentrating, remembering or making decisions? No Information no t available 06/24/2022 Family History Relationship Description Onset Age of this Age Resolved Age Notes LastModified by Organization Details LastModified Time Father No current problems or disability 72 Liver Diseas e Not available 06/24/2022 08:56:52 Father Disease of liver Not available 2021 09:15:14 Mother No current problems or disability 51 Valve replac ement repair ed 40 years ago. COPD Not available 06/24/2022 08:56:33 Mother Chronic obstructive pulmonary disease Not available 2021 09:15:25 Brother No current problems or disability Unknow n histor y Not available 06/24/2022 08:57:07 Medical History Condition Response Coronary Artery Disease Y Gout N Neuropathy/Neuralgia N Kidney Stones Y Hyperthyroidism N Hypothyroidism N Depression N COPD Y Hepatitis C Y Migrane N Diabetes Y Anxiety Disorder Y Arthritis Y Hyperlipidemia N Cancer N Stroke N Asthma N HIV/AIDS N Headache N Bipolar Disorder N GERD/Reflux Y High Cholesterol Y Liver Disease N Pulmonary Embolism N Fibromyalgia N Irritable Bowel Syndrome N Hypertension Y Osteoporosis N Kidney Disease N Past Encounters Encounter ID Performer Location Encounter Start Date Encounter Closed Date Diagnosis/Indication Diagnosis SNOMED-CT Code Diagnosis ICD10 Code Diagnosis IMO Codes Diagnosis Note [id number] Mery Stanford MD PAIN OFFICE [address] [place] [address] 06/24/2022 08:41:51 06/24/2022 13:24:09 Lumbar radiculopathy 979833069 M54.16 Lumbar post-laminectomy syndrome 791515200 M96.1 Degenerati on of lumbar intervertebral disc 86347743 M51.36 [id number] Mery Stanford MD PAIN OFFICE [address] [place] [address] 07/29/2022 15:05:03 07/29/2022 15:42:38 Lumbar radiculopathy 876453012 M54.16 Lumbar post-laminectomy syndrome 673976116 M96.1 Degenerati on of lumbar intervertebral disc 82562538 M51.36 [id number] Mery Stanford MD PAIN OFFICE [address] [place] [address] 09/18/2022 10:08:20 09/18/2022 14:35:12 Lumbar radiculopathy 098367483 M54.16 Lumbar post-laminectomy syndrome 623256141 M96.1 Degenerati on of lumbar intervertebral disc 70966190 M51.36 [id number] Mery Stanford MD [facility] [address] [facility] [place] [address] 10/21/2022 10:57:08 10/21/2022 11:47:29 Lumbar radiculopathy 972838841 M54.16 Lumbar post-laminectomy syndrome 047300555 M96.1 Degenerati on of lumbar intervertebral disc 93733916 M51.36 [id number] Mery Stanford MD [facility] [address] [facility] [place] [address] 12/10/2022 14:18:43 12/10/2022 14:55:26 Lumbar radiculopathy 407631000 M54.16 Lumbar post-laminectomy syndrome 419668030 M96.1 Degenerati on of lumbar intervertebral disc 76513477 M51.36 [id number] Mery Stanford MD [facility] [address] [facility] [place] [address] 02/06/2023 11:03:00 02/06/2023 14:54:14 Lumbar radiculopathy 205233546 M54.16 Lumbar post-laminectomy syndrome 833064005 M96.1 Degenerati on of lumbar intervertebral disc 34129234 M51.36 [id number] Mery Stanford MD [facility] [address] [facility] [place] [address] 03/11/2023 13:20:24 03/11/2023 14:44:55 Lumbar radiculopathy 455645781 M54.16 Lumbar post-laminectomy syndrome 192066962 M96.1 Degenerati on of lumbar intervertebral disc 13221750 M51.36 Health Concerns Section Related Observation LastModified by Organization Detai ls LastModified Time None Recorded Concern Status LastModified by Organization Details LastModified Time None Recorded Advance Directives Directive N: Payers Insurance Date Sequence Insurance Name Policy Number Policy Jimenes Covered Member ID Jimenes Member ID Guarantor Name 03/11/2023 1 [place]: [facility] Garry Charles [id number] Garry Charles 12/10/2022 1 MEDICARE B-[place]: [facility] Garry Charles [id number] Garry Charles 03/11/2023 [place]: [facility] Garry Charles [id number] Garry Charles 04/01/2023 2 [place] [facility] Garry Charles [id number] Garry Charles Notes Date Note Type Note Provider Name and Address Organization Details Recorded Time 09/18/2022 text/html He is here today for a lumbar epidural steroid injection under fluoroscopic guidance. Mery Stanford MD [address] [facility] , [address], [place], [address], [place] [facility] 09/19/2022 11:52:56 10/21/2022 text/html He is here for a follow up after a lumbar epidural steroid injection under fluoroscopic guidance. He reports 70% pain relief for one week He is walking better and has been walking one mile a day or more. He is complaining of occasionally achiness in his low back . He has no history of bladder or bowel incontinence. Mery Stanford MD [address] [facility] , [address], [place], [address], [place] [facility] 10/22/2022 16:55:58 12/10/2022 text/html He is here today for a lumbar epidural steroid injection under fluoroscopic guidance. Mery Stanford MD [address] [facility] , [address], [place], [address], [place] [facility] 12/10/2022 14:58:29 02/06/2023 text/html He is here for a follow up after a lumbar epidural steroid injection under fluoroscopic guidance. He reports no pain relief. He states he had increased pain for a few days after the injection. He is complaining of achiness in his low back . He has no history of bladder or bowel incontinence.He states he has been having low back pain for the past 30 years. He is S/P back surgery in 2010 and reports no pain benefit. He started to have severe pain radiating into right lower extremity. He describes the pain as a shooting pain , sharp from his right buttock region to the right leg with numbness, tingling and weakness in his right lower extremity and occasionally into his left leg . Current pain level is 5-10/10. Pain is aggravated by standing and walking . Pain is relieved a little with application of heat. He has no history of bladder or bowel incontinence. Mery Stanford MD [address] [facility] , [address], [place], [address], [facility] 02/07/2023 10:21:45 03/11/2023 text/html He is here today for a lumbar epidural steroid injection under fluoroscopic guidance. Mery Stanford MD [address] [facility] , [address], [place], [address], [facility] 03/11/2023 16:03:51
== END 2025-06-10 15:41 | disposition home or self-care (01) ==
PROVIDERS: PCP Physician Assistant; Visit Provider Physician Assistant
DX: M96.1 Postlaminectomy syndrome, not elsewhere classified (principal)
CPT/HCPCS: 99213

== ENCOUNTER → 2025-06-10 14:52 | Outpatient (BNVA) | payer MEDICARE, SELFPAY | PROVIDERS: PCP Physician Assistant; Visit Provider Physician Assistant | DX: M79.605 Pain in left leg (principal); G89.4 Chronic pain syndrome; M96.1 Postlaminectomy syndrome, not elsewhere classified; C22.9 Malignant neoplasm of liver, not specified as primary or secondary | CPT/HCPCS: 99212 ==